=== PATIENT | female | born 1930 | race Caucasian/White ===

== ENCOUNTER → 2016-05-20 | Outpatient (CLI) | payer OTHER, BC ==
[~2016-05-20] MED LIST: ADVIN25050 INH; ALBU1AER9 INH; ALEN70TA2 PO; ASCO500T16 PO; ASPI-435 PO; ATOR-22 PO; ATOR-24 PO; CALC-20 PO; CETI10TA84 PO; CHOL20007 PO; CYAN100020 PO; CYAN500T13 PO; DEXT30TA7 PO; ESTCR PV; FLAX100025 PO; GABA-113 PO; GABA400C PO; GABA600T PO; GLIM2TAB2 PO; GLUCTAB7 PO; INSDGIPEN SC; INSU3INJ3 SC; KETO2CRE14; LOSA100T65 PO; LTRCR30 TOP; METF-383 PO; METR-162 PO; MULT-768 PO; MULTTAB58 PO; NRN600 PO; NVLGI/PEN SC; NVLGIPEN SC; OMEG10007 PO; OMEG1CAP81 PO; SPRIN/30 INH; THIA250T3 PO; TIOTCAP INH; VITA100C2 PO; VITA100C4 PO; VNTHFA/IN INH
--- NOTE | 2016-05-20 09:06 | DIAGNOSTIC IMAGING REPORT ---
CHEST 2 VIEWS ROUTINE CLINICAL HISTORY: Cough COMPARISON STUDY: 2013 FINDINGS: The heart remains normal in size. There is pulmonary emphysema. There is prominence of the central pulmonary arteries, a finding suggesting pulmonary arterial hypertension. There is no lobar consolidation. There is no failure. There are no significant pleural effusions. There are subsegmental atelectatic changes at the left lung base.[ IMPRESSION: 1. Emphysema with possible pulmonary arterial hypertension 2. Stable left lung volume loss, possibly postsurgical. Stable left basilar atelectasis/scarring. 3. No evidence of acute parenchymal consolidation Electronically signed by: Jed Suero M.D. 05/20/2016 9:04 AM
== END | disposition home or self-care (01) ==
LOC: C.RAD1850 08:36
PROVIDERS: ATTEND Internal Medicine
DX: R05 Cough (principal); J43.9 Emphysema, unspecified

== ENCOUNTER → 2016-08-27 | Outpatient (CLI) | payer OTHER, BC ==
[2016-08-27 13:56] LABS: URINE APPEARANCE TURBID (CLEAR); URINE BILIRUBIN NEG (NEG); URINE COLOR DK YELLOW; URINE EPITHELIAL CELL AUTO >30 /lpf (0-5); URINE NITRITE NEG (NEG); URINE SPECIFIC GRAVITY 1.009 (1.000-1.030); UROBILINOGEN NEG (NEG); ZZUR CULT IF INDIC CLEAN CATCH YES
[2016-08-27 14:11] LABS: MANUAL MICROSCOPIC REQUIRED? NO; REVIEW REQ? YES
[2016-08-27 14:14] LABS: ESTIMATED AVERAGE GLUCOSE 169 mg/dl; HA1C FLAG Normal (Normal)
[2016-08-27 14:50] LABS: BLOOD UREA NITROGEN 22 mg/dl (7-18); BUN/CREATININE RATIO 23.6 (10-20); CARBON DIOXIDE 29 mmol/L (21-32); CHLORIDE 103 mmol/L (98-107); CREATININE 0.94 mg/dl (0.60-1.20); GLUCOSE 125 mg/dl (70-99); MAGNESIUM 1.9 mg/dl (1.8-2.4); POTASSIUM 4.5 mmol/L (3.5-5.1); SODIUM 141 mmol/L (136-145)
[2016-08-27 14:51] LABS: PHOSPHORUS 3.2 mg/dl (2.5-4.9)
[2016-08-27 14:54] LABS: URINE PROTIEN/CREAT RATIO 0.7 (0-0.2); URINE TOTAL PROTEIN 19.6 mg/dl (0-11.9)
[2016-08-27 15:09] LABS: CALCIUM 10.9 mg/dl (8.5-10.1)
--- NOTE | 2016-09-03 16:00 | CODING QUERY MEDICAL NECESSITY ---
CQSUPPORTING DIAGNOSIS NEEDED A supporting diagnosis is required for the test/procedure performed on this patient in order for us to be reimbursed by the patient's insurance. Please provide a supporting diagnosis for the following test/procedure listed below next to the test name along with your signature. *If there is no additional diagnosis for this patient that would support the following test/procedure please document that below next to the test/procedure. Test(s)/Procedure(s) that require a supporting diagnosis: DOS 08/27/16 URINE CULTURE BACTERIA Provider Signature: Date: Thank you Kati Torres Health Information Management Once completed, please kindly fax back to [phone] For questions please call [phone]
== END | disposition home or self-care (01) ==
LOC: C.LAB1850 11:52
PROVIDERS: ATTEND Internal Medicine Nephrology
DX: N18.3 Chronic kidney disease, stage 3 (moderate) (principal); E11.49 Type 2 diabetes mellitus with other diabetic neurological complication; N39.0 Urinary tract infection, site not specified

== ENCOUNTER 2017-01-26 11:48 | Inpatient (IN) | payer OTHER, BC ==
[~2017-01-26] VITALS: Ht 172.7 cm; Wt 75.0 kg
[~2017-01-26 11:48] MED LIST changes: -ALEN70TA2 PO; -ATOR-22 PO; -CETI10TA84 PO; -CHOL20007 PO; -CYAN100020 PO; -DEXT30TA7 PO; -GABA-113 PO; -GABA600T PO; -INSDGIPEN SC; -INSU3INJ3 SC; -LTRCR30 TOP; -NRN600 PO; -NVLGI/PEN SC; -NVLGIPEN SC; -OMEG10007 PO; -SPRIN/30 INH; -VITA100C2 PO; -VNTHFA/IN INH
[2017-01-26] MEDS ORDERED: ALBUT/IPRATROP 3MG/0.5MG NEB 3 ML VIAL INH STA ×2 (12:19→12:52)
--- NOTE | 2017-01-26 12:46 | DIAGNOSTIC IMAGING REPORT ---
CHEST ONE VIEW PORTABLE CLINICAL HISTORY: Shortness of breath COMPARISON STUDY: No previous studies for comparison. FINDINGS: There is underlying pulmonary emphysema. There is left-sided volume loss. Linear left basilar opacities, likely represents scar/atelectatic change.[ There are no significant pleural effusions. There is no failure. IMPRESSION: Postoperative changes in left hemithorax. Left basilar scar/atelectasis. Emphysema. No evidence of acute parenchymal consolidation Electronically signed by: Jed Suero M.D. 01/26/2017 12:45 PM Dictated Date/Time: 01/26/2017 12:44 PM
[2017-01-26 12:48] LABS: BASO % 0.1 %; BASO ABS # 0.02 K/uL (0-0.2); COMPLETE YES; EOS % 0.1 %; HEMATOCRIT 36.8 % (37-47); IG% 0.4 %; LYMPH % 5.4 %; LYMPH ABS # 0.77 K/uL (1.2-3.4); MEAN CELL VOLUME 91.1 fL (80-100); MEAN CORPUSCULAR HEMOGLOBIN 29.2 pg (25-34); MEAN CORPUSCULAR HGB CONC 32.1 g/dl (32-36); MEAN PLATELET VOLUME 8.7 fL (7.4-10.4); MONO % 5.3 %; NEUT % 88.7 %; PLATELET COUNT 251 K/uL (130-400); RED BLOOD COUNT 4.04 M/uL (4.2-5.4); WHITE BLOOD COUNT 14.25 K/uL (4.8-10.8)
[2017-01-26] MEDS ORDERED: METHYLPREDNISOLONE 125 MG VIAL IV STA (12:52)
--- NOTE | 2017-01-26 12:54 | EMERGENCY ROOM VISIT NOTE ---
History Report prepared by Daniel: Rosario Alegre Under the Supervision of: Dr. Brigette Gabriel M.D. First contact with patient: 12:32 Chief Complaint: SHORTNESS OF BREATH Stated Complaint: BREATHING DIFFICULTY Nursing Triage Summary: Patient arrived via EMS c/o SOB today. States usually she sits down and can catch her breath, today she could not. Pt states she wears oxygen at home at night, 2L, "Dr Dimas told me he wants me to wear it during the day to, but I live alone". Pt states she does not wear the oxygen during the day. On arrival pt O2 Sats 97% on 2L NC. Patient c/o cough, productive, but she has it all the time and there is no change in cough or phlegm. Wheezes ins/exp left side. History of Present Illness The patient is an 86 year old female who presents to the Emergency Room with complaints of persistent shortness of breath that worsened this morning. The patient reports that she has been experiencing increased shortness of breath with exertion. She reports chest tightness and feeling fatigued. The patient states that she has been coughing up a lot of sputum. She states that she has a history of COPD. The patient states that she has never experienced these symptoms in the past. She states that she quit smoking in 1999. The patient states that she wears 2 liters of supplemental nasal cannula oxygen at home at night only. She denies any cardiac history. The reports a history of diabetes. Source of History: patient Onset: this morning Position: other (global) Quality: other (shortness of breath) Timing: other (persistent ) Modifying Factors (Worsening): exertion Associated Symptoms: + chest pain (tightness), + fatigue Review of Systems See HPI for pertinent positives & negatives. A total of 10 systems reviewed and were otherwise negative. Past Medical & Surgical Medical Problems: (1) COPD (chronic obstructive pulmonary disease) (2) DM (diabetes mellitus) (3) Lung cancer (4) Neuropathy Family History Cancer Heart disease Social History Smoking Status: Former Smoker Alcohol Use: none Marital Status: Housing Status: lives alone Occupation Status: retired Current/Historical Medications Scheduled Alendronate Sodium (Fosamax), 70 MG PO WK Aspirin (Aspirin 81), 81 MG PO DAILY Atorvastatin (Lipitor), 20 MG PO HS Calcium Carbonate-Vitamin D (Calcium 600 + D), 1 TAB PO DAILY Cetirizine (Zyrtec), 10 MG PO DAILY Cholecalciferol (Vitamin D3), 2,000 UNITS PO DAILY Clotrimazole (Lotrimin 1%), 1 APPLN TOP BID Cyanocobalamin (Vitamin B12 500MCG), 1,000 MCG PO DAILY Fish Oil ([place]-3), 1 CAP PO DAILY Fluticasone Prop/Salmeterol (Advair Diskus 250-50 Mcg/Dose), 1 PUFF INH BID Gabapentin (Neurontin), 300 MG PO QAM Gabapentin (Gabapentin), 300 MG PO UD Gabapentin (Neurontin), 600 MG PO QPM Insulin Aspart (Novolog Flexpen), 10 UNITS SC QAM Insulin Aspart (Novolog Flexpen), 30 UNITS SC DAILY Insulin Detemir (Levemir Flextouch), 17-20 UNITS SC HS Losartan Potassium (Cozaar), 100 MG PO DAILY Multiple Vitamin (Multivitamin), 1 TAB PO DAILY Multiple Vitamins W/ Minerals (Macular Vitamin Benefit), 2 TABS PO DAILY Thiamine Hcl (Vitamin B-1), 1 TAB PO DAILY Tiotropium Orange (Spiriva Handihaler), 1 CAP INH DAILY Vitamin E (Vitamin E 100 Iu), 100 INTER.UNIT PO DAILY Scheduled PRN Albuterol Hfa (Ventolin Hfa), 2 PUFFS INH Q4H PRN for SOB/Wheezing Dextromethorphan-Guaifenesin (Mucinex Dm), 1 TAB PO Q12 PRN for CONGESTION Allergies Coded Allergies: No Known Allergies (Unverified , 01/26/17) Physical Exam Vital Signs Date Time Temp Pulse Resp B/P (MAP) Pulse Ox O2 Delivery O2 Flow Rate FiO2 01/26/17 13:16 99 26 152/85 98 Mask 5.0 01/26/17 13:13 104 26 153/76 80 Room Air 01/26/17 12:35 100 27 153/78 96 Nasal Cannula 3.0 01/26/17 12:35 96 Nasal Cannula 2.0 01/26/17 12:31 102 25 96 Nasal Cannula 2.0 01/26/17 12:21 100 01/26/17 11:50 36.4 105 24 153/78 97 Nasal Cannula 2.0 01/26/17 11:50 97 Nasal Cannula 2.0 01/26/17 11:50 87 Room Air Physical Exam Vital signs reviewed. General: Well-appearing female, in no significant distress. HEENT: No scleral icterus, PERRLA, neck supple. Atraumatic. Hard of hearing Cardiovascular: Regular rate and rhythm, no extra sounds. Pulmonary: Coarse breath sounds with wheezing bilaterally, increased work of breathing. Abdomen: Soft, nontender, nondistended, positive bowel sounds. Musculoskeletal: Atraumatic, no peripheral edema. Neurologic: Patient awake alert and oriented x 3, full strength in all 4 extremities. Cranial nerves 2 through 12 grossly intact. Skin: Warm, dry, no rash Medical Decision & Procedures ER Provider Diagnostic Interpretation: Radiology results as stated below per my review and radiologist interpretation: CHEST ONE VIEW PORTABLE CLINICAL HISTORY: Shortness of breath COMPARISON STUDY: No previous studies for comparison. FINDINGS: There is underlying pulmonary emphysema. There is left-sided volume loss. Linear left basilar opacities, likely represents scar/atelectatic change.[ There are no significant pleural effusions. There is no failure. IMPRESSION: Postoperative changes in left hemithorax. Left basilar scar/atelectasis. Emphysema. No evidence of acute parenchymal consolidation Electronically signed by: Jed Suero M.D. 01/26/2017 12:45 PM Dictated Date/Time: 01/26/2017 12:44 PM Laboratory Results Test 01/26/17 12:35 01/26/17 13:29 Prothrombin Time 10.8 SECONDS (9.0-12.0) Prothromb Time International Ratio 1.0 (0.9-1.1) Activated Partial Thromboplast Time 23.6 SECONDS (21.0-31.0) Partial Thromboplastin Ratio 0.9 Total Bilirubin 0.3 mg/dl (0.2-1) Aspartate Amino Transf (AST/SGOT) 13 U/L (15-37) Alanine Aminotransferase (ALT/SGPT) 18 U/L (12-78) Alkaline Phosphatase 69 U/L (45-117) Pro-B-Type Natriuretic Peptide 193 pg/ml (0-1800) Total Protein 7.1 gm/dl (6.4-8.2) Albumin 3.5 gm/dl (3.4-5.0) Globulin 3.6 gm/dl (2.5-4.0) Albumin/Globulin Ratio 1.0 (0.9-2) Bedside Troponin I < 0.030 ng/ml (0-0.045) Laboratory results per my review. Medications Administered Medications (Trade) Dose Ordered Sig/Sarkis Route Start Time Stop Time Status Last Admin Dose Admin Albuterol/ Ipratropium (Duoneb) 3 ml NOW STAT INH 01/26/17 12:19 01/26/17 12:20 DC 01/26/17 13:01 3 ML Methylprednisolone Sodium Succinate (Solu-Medrol IV) 125 mg NOW STAT IV 01/26/17 12:52 01/26/17 12:54 DC 01/26/17 13:00 125 MG Insulin Human Regular 250 units/ Sodium Chloride 252.5 ml @ 0 mls/hr DAILY@1130 IV 01/26/17 11:30 01/28/17 01:47 DC 01/27/17 22:00 8.4 MLS/HR ECG Indication: SOB/dyspnea Rate (beats per minute): 102 Rhythm: sinus tachycardia Findings: no acute ischemic change, left axis deviation, no ectopy ED Course 1219: Ordered DuoNeb 3 ml INH. 1248: Past medical records reviewed. The patient was evaluated in room C6. A complete history and physical examination was performed. 1252: Ordered Solu-Medrol IV 125 mg IV. 1332: I discussed the patients case with Dr. [place] [facility] [place] He is going to evaluate the patient for further treatment. 1335: I reevaluated the patient and she is resting comfortably. I discussed the exam findings with her and I discussed the treatment plan. She verbalized complete understanding and agreement. She will be evaluated for further treatment. Medical Decision Differential diagnosis: Etiologies such as infections, reactive airway disease, pneumonia, pneumothorax , COPD, CHF, cardiac ischemia, pulmonary embolism, musculoskeletal, gastrointestinal, as well as others were entertained. This pt was evaluated and appeared to be in no distress. Pt was on n/c O2 and is noted to be hypoxic on RA. A duoneb tx was given, IV solumedral. CXR is neg for infiltrate or failure. EKG is non ischemic. Lab work reveals a leukocytosis. No atbx have been administered however, no evidence of infection otherwise. Pt case was d/w hospitalist service for admission and further management. Pt is aware of the plan and agrees. Medication Reconcilliation Current Medication List: was personally reviewed by me Blood Pressure Screening Patient's blood pressure: Elevated blood pressure Blood pressure disposition: Elevated BP felt to be situational (referred to hospitalist) Consults Time Called: 1329 Consulting Physician: JUANITA Azar Returned Call: [phone] I discussed the patients case with JUANITA Azar. He is going to evaluate the patient for further treatment. Impression Primary Impression: COPD exacerbation Additional Impression: Hypoxia Scribe Attestation The scribe's documentation has been prepared under my direction and personally reviewed by me in its entirety. I confirm that the note above accurately reflects all work, treatment, procedures, and medical decision making performed by me. Departure Information Dispostion Being Evaluated By Hospitalist Referrals RV. Balbuena MD (PCP) Problem Qualifiers
[2017-01-26 12:56] LABS: PARTIAL THROMBOPLASTIN RATIO 0.9; PROTHROMBIN TIME (PATIENT) 10.8 SECONDS (9.0-12.0)
[2017-01-26 13:06] LABS: CREATININE 0.92 mg/dl (0.60-1.20)
[2017-01-26 13:07] LABS: BUN/CREATININE RATIO 19.2 (10-20); CALCIUM 9.7 mg/dl (8.5-10.1); POTASSIUM 4.5 mmol/L (3.5-5.1)
[2017-01-26] MEDS ORDERED: NVLGIPEN SC (13:36)
[2017-01-26] MEDS ORDERED: LTRCR30 TOP (13:36)
[2017-01-26] MEDS ORDERED: DEXT30TA7 PO (13:36)
[2017-01-26] MEDS ORDERED: OMEG10007 PO (13:36)
[2017-01-26] MEDS ORDERED: INSU3INJ3 SC (13:36)
[2017-01-26] MEDS ORDERED: NVLGI/PEN SC (13:36)
[2017-01-26] MEDS ORDERED: VITA100C2 PO (13:36)
[2017-01-26] MEDS ORDERED: GABA600T PO ×2 (13:36)
[2017-01-26] MEDS ORDERED: ALEN70TA2 PO (13:36)
[2017-01-26] MEDS ORDERED: ATOR-22 PO (13:36)
[2017-01-26] MEDS ORDERED: NRN600 PO (13:36)
[2017-01-26] MEDS ORDERED: CHOL20007 PO (13:36)
[2017-01-26] MEDS ORDERED: CETI10TA84 PO (13:36)
[2017-01-26] MEDS ORDERED: SPRIN/30 INH (13:36)
[2017-01-26] MEDS ORDERED: VNTHFA/IN INH (13:37)
[2017-01-26] MEDS ORDERED: ZOLPIDEM TARTRATE 5 MG TAB PO PRN (14:15)
[2017-01-26] MEDS ORDERED: ACETAMINOPHEN 325 MG TAB PO PRN (14:15)
[2017-01-26] MEDS ORDERED: MAGNESIUM HYDROXIDE SUSP 30 ML UDC PO PRN (14:15)
[2017-01-26] MEDS ORDERED: ONDANSETRON INJ 2 MG/ML 2 ML VIAL IV PRN (14:15)
[2017-01-26] MEDS ORDERED: POLYETHYLENE (MIRALAX) 17 GM PACK PO PRN (14:15)
[2017-01-26] MEDS ORDERED: ALUMINUM/MAGNESIUM/SIMETH (MAALOX MAX) 30 ML UDC PO PRN (14:15)
[2017-01-26] MEDS ORDERED: PHARMACY GLYCEMIC MGMT CONSULT PRN (14:30)
--- NOTE | 2017-01-26 14:30 | History and Physical ---
History & Physical Date of Service Jan 26, 2017. History & Physical COPD EXAC, [id number]
[2017-01-26] MEDS ORDERED: ALBUT/IPRATROP 3MG/0.5MG NEB 3 ML VIAL INH PRN (14:45)
--- NOTE | 2017-01-26 15:01 | HISTORY & PHYSICAL EXAMINATION ---
DATE OF ADMISSION: 01/26/2017 This is a level 3 inpatient admission, 40 minutes. CHIEF COMPLAINT: Worsening shortness of breath and wheezing. HISTORY OF PRESENT ILLNESS: The patient is an 86-year-old white female with history of COPD, diabetic, lung cancer, neuropathy, dyslipidemia, coming into the hospital Emergency Room because of the above chief complaint. Per report, the patient lives alone. She usually needs oxygen at nighttime and usually able to catch up her breathing, but today was feeling more difficulty breathing. The patient was sent to the hospital Emergency Room. When she arrived to the Emergency Room, pulse ox was 97% on 2 liters. She complained about cough productively but she reported has been having this cough all the time. Has no changes recently. She was wheezing, inspiratory and expiratory. She also reported chest tight and feeling fatigued. She has history of COPD and remote smoking, quit in the year of 1999. In the Emergency Room, she was thought has COPD exacerbation, so Solu-Medrol was given. I was called to do admission. When I interviewed with the patient, she was having decreased hearing, but awake, alert and orientated, conversational, smiling. Denied fever and chills. Denied chest pain, palpitations. Denied lower extremity swellings. Denied nausea, vomiting, abdominal pain, diarrhea, or constipation. Denied dysuria, urgency and frequencies. Denied facial droop, slurry speeches or local weakness. PAST MEDICAL HISTORY: Like I mentioned in the above. FAMILY HISTORY: Include cancer, heart disease. SOCIAL HISTORY: Former smoker. Denied alcohol abuse disorder. The patient lives alone. She is . MEDICATIONS: Taking at home which include Fosamax 70 mg p.o. q. weekly, aspirin 81 mg p.o. daily, Lipitor 20 mg p.o. at bedtime, calcium 600 plus D 1 tab p.o. daily, Zyrtec 10 mg p.o. daily, vitamin D3 2000 units p.o. daily, Lotrimin 1% topical use b.i.d., vitamin B12 500 mcg p.o. daily, fish oil 1 tab p.o. daily, Advair 250/50 one puff b.i.d., gabapentin 300 mg p.o. q.a.m. and 600 mg p.o. q.p.m. Insulin aspart 10 units subQ q.a.m. and 30 units subQ daily, Levemir 17-20 units subQ at bedtime, Losartan 100 mg p.o. daily, multiple vitamin 1 tab p.o. daily, thiamine 1 tab p.o. daily, Spiriva 1 cap inhaled daily, vitamin E 100 units p.o. daily, albuterol inhale 2 puff q. 4 hours p.r.n. for shortness of breath and wheezing, Mucinex DM 1 tab p.o. q. 12 hours p.r.n. for congestion. ALLERGIES: No known drug allergy. REVIEW OF SYSTEMS: Please see HPI, otherwise 14-point organ system review were negative. PHYSICAL EXAMINATION: VITAL SIGNS: of physical Temperature is 36.4, pulse 105, respiratory rate 24, blood pressure 153/78, pulse ox was 97% on 2 liters. GENERAL: The patient is white female, pleasant, wheezing, wet cough, but awake, alert and orientated, pleasant, conversational, decreased hearing. HEAD: Normocephalic. EYES: Pupils equal, round responds to light. EARS: Ear was normal. NOSE: Normal. NECK: Supple. Thyroid no enlargement. Trachea midline. HEART: Regular rhythm. S1, S2. LUNGS: Significant decreased breathing sounds. There was some wheezing, inspiratory and expiratory wheezing and wet rales. ABDOMEN: Soft, nontender. Bowel sound was positive. EXTREMITIES: Bilateral CVA was nontender. No swelling. Homans sign was negative. NEUROLOGICAL EVALUATION: Cranial nerves II-XII was intact. There was no local deficits. SKIN: Has no rashes. LABORATORY STUDIES: WBC 14, hemoglobin 11, platelet 251. Neutrophil cells was 88%. Calcium 9.7, total bilirubin 0.3. Liver function was within normal limits. PT/INR was normal. IMAGING STUDIES: Chest x-ray studies, there was postop changes in the left hemithorax. Because she has history of lung cancer possible from the procedure there was also emphysema changes. No evidence of acute acute parenchymal consolidations. ASSESSMENT AND PLAN: An 86-year-old white female with the condition below. 1. Chronic obstructive pulmonary disease exacerbation. 2. Leukocytosis but chest x-ray has no evidence of pneumonia. 3. Decreased hearing. 4. History of lung cancer s/p surgery 5. Hypertension. 6. Dyslipidemia. 7. Diabetic. 8. Neuropathy. PLAN: The patient obviously has COPD exacerbation, will be full admission. Continue Solu-Medrol 80 mg q. 8 hours IV, DuoNeb q. 6 hours scheduled and q. 2 hours as needed. Because of mild leukocytosis, I sent blood culture and started Levaquin as well just for only bronchitis. The patient possibly has no pneumonia for now. However, if want to define more we may need to have 2 view chest x-ray for further evaluation and treatment. 2. History of hypertension, we will continue current home medications. 3. History of neuropathy, will continue Neurontin 4. Diabetic,will ordered HbA1c. Insulin sliding scale. Continue home dose of the Levemir. Consult pharmacy blood glucose control. 5. Deep venous thrombosis prophylaxis Lovenox and GI prophylaxis is Protonix. It will be important the patient has decreased hearing. I do not believe is able to discuss about code status, although she is awake, alert, and orientated. I heard the patient's son call in to this Emergency Room already. However, I am not able to localize the son's phone number to call him back. I was trying the list contact number , no answer. We need to continue communication with patient's son. She reported to me she has 4 sons, everyone is good to her. I WILL KEEP HER IN FULL CODE FOR NOW. JESSICA
--- NOTE | 2017-01-26 15:04 | Pharmacy Progress Note ---
Glycemic Control Intl Consult Date of Service Jan 26, 2017. Scope Glycemic Pharmacist consulted by Dr Garcia on 01/26/17 for glycemic control and to write orders per [facility] inpatient glycemic control protocol Objective Weight (Kilograms): 74.900 Accuchecks BSG (last 24hrs): Test 01/26/17 12:35 Random Glucose 263 mg/dl (70-99) Laboratory Data (last 24hrs) Test 01/26/17 12:35 Anion Gap 5.0 mmol/L BUN/Creatinine Ratio 19.2 Blood Urea Nitrogen 18 mg/dl Creatinine 0.92 mg/dl Potassium Level 4.5 mmol/L Sodium Level 135 mmol/L White Blood Count 14.25 K/uL Red Blood Count 4.04 M/uL Hemoglobin 11.8 g/dL Hematocrit 36.8 % Mean Corpuscular Volume 91.1 fL Mean Corpuscular Hemoglobin 29.2 pg Mean Corpuscular Hemoglobin Concent 32.1 g/dl Platelet Count 251 K/uL Mean Platelet Volume 8.7 fL Neutrophils (%) (Auto) 88.7 % Lymphocytes (%) (Auto) 5.4 % Monocytes (%) (Auto) 5.3 % Eosinophils (%) (Auto) 0.1 % Basophils (%) (Auto) 0.1 % Neutrophils # (Auto) 12.64 K/uL Lymphocytes # (Auto) 0.77 K/uL Monocytes # (Auto) 0.75 K/uL Eosinophils # (Auto) 0.01 K/uL Basophils # (Auto) 0.02 K/uL Recent Pertinent Medications Outpatient Anti-diabetic Regimen: * Levemir 26 units qPM plus Novolog 10 units with breakfast and 30 units with dinner * A1c = 7.5 % 08/27/16 Risk Factors for Insulin Resistance: * Steroids: Solu-Medrol 125 mg IV x 1 then 80 mg IV q8 hours * Infection: COPD exacerbation * Diet: type 2 diabetic diet Assessment & Plan ASSESSMENT: * ADA & AACE recommend a goal blood sugar range 140-180 mg/dl for the majority of critically ill & non-critically ill patients. However, more stringent targets may be selected in individual cases. Will utilize more stringent goal of 100-150 mg/dl based on patient age & comorbidities. Additionally, tighter glycemic control is warranted to facilitate infection healing. * Ms Francois is an 86 y/o with a PMH of COPD and lung CA. She is admitted with a COPD exacerbation. Ms Francois sees the paraeducator - her regimen provides reasonable coverage as an outpatient with only a few lows secondary to dietary choices. On admission, Ms Francois was given high dose steroids (Anjali-Medrol 125 mg IV in the ED and 80 mg IV q8 hours). * Out of concern for having controlled blood sugars, an insulin infusion (spoke with Dr Garcia who agreed to the therapy) with concurrent Levemir will be started. A fixed carbohydrate ratio will also be utilized. Both will originate from weight based stress of 3 dosing. PLAN FOR INPATIENT GLYCEMIC CONTROL: * Starting IV insulin infusion per moderate (moderate/severe) stress protocol * Goal Range 110 - 160 mg/dl * In the critical care setting, continuous IV insulin infusion has been shown to be the best method for achieving glycemic targets. * Basal insulin with Levemir 20 units SQ BID * Correctional Insulin with NOVOLOG per scale ACHS or Q6hrs while NPO * Goal Range: Low 110 mg/dL - High 160 mg/dL * Correction Factor: -- mg/dL/unit * Nutritional / Prandial insulin per carb ratio of 1 unit per 6 grams CHO consumed * Please note that the plan above was derived based on current level of insulin resistance and hospital stress. These recommendations are appropriate for inpatient admission only. Plan of care upon discharge will need to be reassessed to avoid potential outpatient hypo/hyperglycemia. Thank you.
[2017-01-26] MEDS ORDERED: INSULIN HUMAN REGULAR IV BOLUS 2 UNIT in SYRINGE 0 ML IV SCH (15:30)
[2017-01-26] MEDS ORDERED: INSULIN ASPART 100 UNITS/ML 3 ML PEN SC SCH (16:00)
[2017-01-26] MEDS: INSULIN REGULAR 250 UNITS in SODIUM CHLORIDE 0.9% 250ML 250 ML IV SCH ×3 (16:22→19:40)
[2017-01-26 16:42] LABS: URINE APPEARANCE CLEAR (CLEAR); URINE BILIRUBIN NEG (NEG); URINE COLOR YELLOW; URINE NITRITE NEG (NEG); URINE SPECIFIC GRAVITY 1.006 (1.000-1.030); UROBILINOGEN NEG (NEG)
[2017-01-26 16:49] LABS: MANUAL MICROSCOPIC REQUIRED? NO; REVIEW REQ? YES
[2017-01-26] MEDS: MUCINEX DM~ORDER AWAITING ACTION SCH ×2 (17:00→23:12)
[2017-01-26] MEDS ORDERED: LEVOFLOXACIN 750 MG TAB PO SCH (17:15)
[2017-01-26] MEDS ORDERED: PANTOprazole SOD 40 MG TAB PO ONE (17:15)
[2017-01-26 18:49] VITALS: BP 144/78; PULSE 92; TEMP 36.6; O2SAT 98; BMI 26.4
[2017-01-26] MEDS: INSULIN ASPART 100 UNITS/ML 3 ML PEN SC SCH ×2 (19:39→20:51)
[2017-01-26 20:00] VITALS: O2SAT 98
[2017-01-26] MEDS: ALBUT/IPRATROP 3MG/0.5MG NEB 3 ML VIAL INH SCH (20:04)
[2017-01-26 20:06] VITALS: PULSE 91; O2SAT 97
[2017-01-26] MEDS: METHYLPREDNISOLONE IV 80 MG in SYRINGE 0 ML IV SCH (20:46)
[2017-01-26] MEDS: CLOTRIMAZOLE 1% CR 15 GM TUBE EXT SCH (20:49)
[2017-01-26] MEDS: GABAPENTIN 600 MG TAB PO SCH (20:50)
[2017-01-26] MEDS: ATORVASTATIN 20 MG TAB PO SCH (20:50)
[2017-01-26] MEDS: ENOXAPARIN 40 MG/0.4 ML SYR SC SCH (20:51)
[2017-01-26] MEDS: INSULIN DETEMIR FLEXPEN/FLEX TOUCH 100 UNITS/ML 3ML SC SCH (20:53)
[2017-01-26 23:16] VITALS: BP 112/59; PULSE 81; TEMP 36.8; O2SAT 96
[2017-01-27] VITALS (11 sets, daily range): BP systolic 96–121; BP diastolic 54–71; PULSE 61–85; TEMP 36.4–36.9; O2SAT 95–98; Ht 172.7 cm; Wt 75.0 kg
[2017-01-27] MEDS: INSULIN REGULAR 250 UNITS in SODIUM CHLORIDE 0.9% 250ML 250 ML IV SCH ×8 (00:12→22:00)
[2017-01-27] MEDS ORDERED: PNEUMOCOCCAL POLYSACCHARIDES 25 MCG/0.5 ML VIAL/SYR IM. ONE (01:45)
[2017-01-27] MEDS ORDERED: PNEUMOCOCCAL ADMINISTRATION CHARGE ONE (01:45)
[2017-01-27] MEDS: METHYLPREDNISOLONE IV 80 MG in SYRINGE 0 ML IV SCH ×3 (04:01→23:42)
[2017-01-27 06:03] LABS: BASO % 0.1 %; BASO ABS # 0.01 K/uL (0-0.2); COMPLETE YES; HEMATOCRIT 35.4 % (37-47); IG% 0.4 %; LYMPH % 7.9 %; LYMPH ABS # 1.03 K/uL (1.2-3.4); MEAN CORPUSCULAR HEMOGLOBIN 28.5 pg (25-34); MEAN CORPUSCULAR HGB CONC 31.4 g/dl (32-36); MEAN PLATELET VOLUME 8.7 fL (7.4-10.4); NEUT % 89.6 %; PLATELET COUNT 256 K/uL (130-400); RED BLOOD COUNT 3.89 M/uL (4.2-5.4); WHITE BLOOD COUNT 12.98 K/uL (4.8-10.8)
[2017-01-27 06:39] LABS: BUN/CREATININE RATIO 22.4 (10-20); CALCIUM 9.8 mg/dl (8.5-10.1); CREATININE 0.79 mg/dl (0.60-1.20); POTASSIUM 4.2 mmol/L (3.5-5.1)
[2017-01-27 06:53] LABS: ESTIMATED AVERAGE GLUCOSE 166 mg/dl; HA1C FLAG Normal (Normal)
[2017-01-27] MEDS: MUCINEX DM~ORDER AWAITING ACTION SCH ×3 (07:02→23:24)
[2017-01-27] MEDS: ALBUT/IPRATROP 3MG/0.5MG NEB 3 ML VIAL INH SCH ×4 (08:00→20:00)
[2017-01-27] MEDS: CLOTRIMAZOLE 1% CR 15 GM TUBE EXT SCH ×2 (08:39→20:22)
[2017-01-27] MEDS: CHOLECALCIFEROL 1000 INTER.UNIT TAB PO SCH (08:41)
[2017-01-27] MEDS: CALCIUM 600MG + VIT D 400 IU TAB PO SCH (08:41)
[2017-01-27] MEDS: OMEGA-3 (PURIFIED FISH OIL) 1 GM CAP PO SCH (08:41)
[2017-01-27] MEDS: CYANOCOBALAMIN 500 MCG TAB (VIT B-12) PO SCH (08:41)
[2017-01-27] MEDS: ASPIRIN 81 MG ECTAB PO SCH (08:41)
[2017-01-27] MEDS: PANTOprazole SOD 40 MG TAB PO SCH (08:41)
[2017-01-27] MEDS: CEROVITE ADV FORMULA TAB PO SCH (08:41)
[2017-01-27] MEDS: LOSARTAN POTASSIUM 50 MG TAB PO SCH (08:42)
[2017-01-27] MEDS: THIAMINE HCL 100 MG TAB PO SCH (08:42)
[2017-01-27] MEDS: GABAPENTIN 300 MG CAP PO SCH (08:42)
[2017-01-27] MEDS: CETIRIZINE HCL 10 MG TAB PO SCH (08:44)
[2017-01-27] MEDS: INSULIN ASPART 100 UNITS/ML 3 ML PEN SC SCH ×4 (08:51→20:20)
[2017-01-27] MEDS: INSULIN DETEMIR FLEXPEN/FLEX TOUCH 100 UNITS/ML 3ML SC SCH ×2 (08:52→20:14)
[2017-01-27] MEDS ORDERED: INSULIN ASPART 100 UNITS/ML 3 ML PEN SC SCH ×2 (09:00)
[2017-01-27] MEDS ORDERED: MULTIVITAMIN TAB PO SCH (09:00)
[2017-01-27] MEDS: ATORVASTATIN 20 MG TAB PO SCH (20:10)
[2017-01-27] MEDS: GABAPENTIN 600 MG TAB PO SCH (20:12)
[2017-01-27] MEDS: ENOXAPARIN 40 MG/0.4 ML SYR SC SCH (20:16)
--- NOTE | 2017-01-27 21:17 | Progress Note ---
Subjective Date of Service: Jan 27, 2017. Subjective Pt evaluation today including: conversation w/ patient, physical exam, chart review, lab review, review of studies Patient is reporting significant improveemnt. She states that she is able to breath better, She feels uneasy ambulating however, as she states that she is going to fall. Patient denies orthostatic symptoms when she stands up. Problem List Medical Problems: (1) COPD exacerbation Status: Acute (2) Hypoxia Status: Acute Review of Systems Constitutional: No see HPI, No fever, No chills, No sweats, No weight loss, No weakness, No fatigue, No problem reported Respiratory: + shortness of breath, No cough, No sputum Cardiac: No chest pain, No orthopnea Abdomen: No pain, No nausea Musculoskeletal: No joint pain Female : No dysuria, No urinary frequency All Other Systems: Reviewed and Negative Medications Current Inpatient Medications Medications (Trade) Dose Ordered Sig/Sarkis Route Start Time Stop Time Status Last Admin Dose Admin Enoxaparin Sodium (Lovenox Inj) 40 mg Q24H SC 01/26/17 21:00 02/25/17 20:59 01/27/17 20:16 40 MG Acetaminophen (Tylenol Tab) 650 mg Q4H PRN PO 01/26/17 14:15 02/25/17 14:14 Al Hydrox/Mg Hydrox/Simethicone (Maalox Max Susp) 15 ml Q4H PRN PO 01/26/17 14:15 02/25/17 14:14 Magnesium Hydroxide (Milk Of Magnesia Susp) 30 ml Q12H PRN PO 01/26/17 14:15 02/25/17 14:14 Zolpidem Tartrate (Ambien Tab) 5 mg HSZ PRN PO 01/26/17 14:15 02/25/17 14:14 Ondansetron HCl (Zofran Inj) 4 mg Q6H PRN IV 01/26/17 14:15 02/25/17 14:14 Polyethylene (Miralax Powder Packet) 17 gm DAILY PRN PO 01/26/17 14:15 02/25/17 14:14 Levofloxacin (Levaquin Tab) 750 mg Q2D@1100 PO 01/26/17 17:15 02/02/17 17:14 01/26/17 18:38 750 MG Albuterol/ Ipratropium (Duoneb) 3 ml QIDR INH 01/26/17 16:00 02/25/17 15:59 01/27/17 20:00 3 ML Aspirin (Ecotrin Tab) 81 mg DAILY PO 01/27/17 09:00 02/26/17 08:59 01/27/17 08:41 81 MG Atorvastatin Calcium (Lipitor Tab) 20 mg HS PO 01/26/17 21:00 02/25/17 20:59 01/27/17 20:10 20 MG Cetirizine HCl (zyrTEC TAB) 10 mg DAILY PO 01/27/17 09:00 02/26/17 08:59 Clotrimazole (Lotrimin 1% Crm) 1 appln BID EXT 01/26/17 21:00 02/25/17 20:59 Cyanocobalamin (Vitamin B-12 Tab) 1,000 mcg DAILY PO 01/27/17 09:00 02/26/17 08:59 01/27/17 08:41 1,000 MCG Fish Oil ([place]-3 (Purified Fish Oil) Cap) 1 gm DAILY PO 01/27/17 09:00 02/26/17 08:59 01/27/17 08:41 1 GM Gabapentin (Neurontin Cap) 300 mg QAM PO 01/27/17 09:00 02/26/17 08:59 01/27/17 08:42 300 MG Gabapentin (Neurontin Tab) 600 mg QPM PO 01/26/17 21:00 02/25/17 20:59 01/27/17 20:12 600 MG Insulin Detemir (Levemir Flexpen/ FlexTouch) 20 units BID SC 01/26/17 21:00 02/25/17 20:59 Future hold 01/27/17 20:14 20 UNITS Losartan Potassium (coZAAR TAB) 100 mg DAILY PO 01/27/17 09:00 02/26/17 08:59 01/27/17 08:42 100 MG Multivitamins/ Minerals (Multivitamin W/ Minerals Tab) 2 tab DAILY PO 01/27/17 09:00 02/26/17 08:59 01/27/17 08:41 2 TAB Calcium/Vitamin D (Caltrate Plus Tab) 1 tab DAILY PO 01/27/17 09:00 02/26/17 08:59 01/27/17 08:41 1 TAB Cholecalciferol (Vitamin D Tab) 2,000 inter.unit DAILY PO 01/27/17 09:00 02/26/17 08:59 01/27/17 08:41 2,000 INTER.UNIT Miscellaneous Information (Order Awaiting Action) 1 ea QS N/A 01/26/17 17:00 02/25/17 16:59 Thiamine HCl (Vitamin B-1 Tab) 250 mg DAILY PO 01/27/17 09:00 02/26/17 08:59 01/27/17 08:42 250 MG Miscellaneous Information (Consult Glycemic Management Pharmacy) 1 ea UD PRN N/A 01/26/17 14:30 02/25/17 14:29 Pantoprazole Sodium (Protonix Tab) 40 mg QAM PO 01/27/17 09:00 02/26/17 08:59 01/27/17 08:41 40 MG Albuterol/ Ipratropium (Duoneb) 3 ml Q2H PRN INH 01/26/17 14:45 02/25/17 14:44 Insulin Human Regular 250 units/ Sodium Chloride 252.5 ml @ 0 mls/hr DAILY@1130 IV 01/26/17 11:30 02/25/17 11:29 01/27/17 20:00 8.4 MLS/HR Insulin Aspart (novoLOG ASPART) SLIDING SCALE [facility] 01/26/17 18:00 02/25/17 18:59 01/27/17 20:20 4 UNITS Methylprednisolone Sodium Succinate 80 mg/Syringe 1.28 ml @ 1.5 mls/min Q12H IV 01/28/17 00:00 02/25/17 19:59 Objective Vital Signs Date Time Temp Pulse Resp B/P (MAP) Pulse Ox O2 Delivery O2 Flow Rate FiO2 01/27/17 15:14 36.7 73 16 96/58 (71) 98 Nasal Cannula 2.0 01/27/17 12:10 Nasal Cannula 2.0 01/27/17 11:34 36.4 75 18 121/67 (85) 97 Nasal Cannula 2.0 01/27/17 11:33 62 16 97 Nasal Cannula 2.0 01/27/17 08:30 Nasal Cannula 2.0 01/27/17 06:59 36.6 70 18 110/71 (84) 97 Nasal Cannula 2.0 01/27/17 04:00 Nasal Cannula 2.0 01/27/17 03:29 36.9 73 20 104/60 (75) 95 Nasal Cannula 1.0 01/27/17 00:00 Nasal Cannula 2.0 01/26/17 23:16 36.8 81 20 112/59 (76) 96 Nasal Cannula 2.0 01/26/17 20:06 91 18 97 Nasal Cannula 2.0 01/26/17 20:00 98 Nasal Cannula 2.0 01/26/17 18:49 36.6 92 26 144/78 98 Nasal Cannula 2.0 Physical Exam General Appearance: WD/WN, no apparent distress Eyes: normal inspection Neck: supple, no adenopathy, thyroid normal Respiratory/Chest: chest non-tender, lungs clear, normal breath sounds Cardiovascular: regular rate, rhythm, no edema, no gallop, no JVD Abdomen: normal bowel sounds, non tender Extremities: normal range of motion, non-tender Skin: normal color Lymphatic: no adenopathy Laboratory Results Last 24 Hours Test 01/26/17 17:13 01/26/17 18:04 01/26/17 19:04 01/26/17 20:00 Bedside Glucose 204 mg/dl 220 mg/dl 255 mg/dl 237 mg/dl Test 01/26/17 21:06 01/26/17 22:09 01/26/17 23:09 01/27/17 00:07 Bedside Glucose 195 mg/dl 180 mg/dl 172 mg/dl 145 mg/dl Test 01/27/17 01:04 01/27/17 02:05 01/27/17 03:57 01/27/17 05:28 Bedside Glucose 145 mg/dl 156 mg/dl 132 mg/dl White Blood Count 12.98 K/uL Red Blood Count 3.89 M/uL Hemoglobin 11.1 g/dL Hematocrit 35.4 % Mean Corpuscular Volume 91.0 fL Mean Corpuscular Hemoglobin 28.5 pg Mean Corpuscular Hemoglobin Concent 31.4 g/dl Platelet Count 256 K/uL Mean Platelet Volume 8.7 fL Neutrophils (%) (Auto) 89.6 % Lymphocytes (%) (Auto) 7.9 % Monocytes (%) (Auto) 2.0 % Eosinophils (%) (Auto) 0.0 % Basophils (%) (Auto) 0.1 % Neutrophils # (Auto) 11.63 K/uL Lymphocytes # (Auto) 1.03 K/uL Monocytes # (Auto) 0.26 K/uL Eosinophils # (Auto) 0.00 K/uL Basophils # (Auto) 0.01 K/uL RDW Standard Deviation 47.8 fL RDW Coefficient of Variation 14.4 % Immature Granulocyte % (Auto) 0.4 % Immature Granulocyte # (Auto) 0.05 K/uL Sodium Level 140 mmol/L Potassium Level 4.2 mmol/L Chloride Level 107 mmol/L Carbon Dioxide Level 29 mmol/L Anion Gap 4.0 mmol/L Blood Urea Nitrogen 18 mg/dl Creatinine 0.79 mg/dl Est Creatinine Clear Calc Drug Dose 54.5 ml/min Estimated GFR () 78.0 Estimated GFR (Non- 67.3 BUN/Creatinine Ratio 22.4 Random Glucose 130 mg/dl Estimated Average Glucose 166 mg/dl Hemoglobin A1c 7.4 % Calcium Level 9.8 mg/dl Magnesium Level 2.0 mg/dl Test 01/27/17 06:09 01/27/17 08:01 01/27/17 10:12 01/27/17 11:23 Bedside Glucose 123 mg/dl 125 mg/dl 195 mg/dl 165 mg/dl Test 01/27/17 12:18 01/27/17 13:31 01/27/17 14:33 01/27/17 15:35 Bedside Glucose 134 mg/dl 216 mg/dl 185 mg/dl 188 mg/dl Assessment and Plan An 86-year-old white female with the condition below. 1. Chronic obstructive pulmonary disease exacerbation. 2. Leukocytosis but chest x-ray has no evidence of pneumonia. 3. Decreased hearing. 4. History of lung cancer s/p surgery 5. Hypertension. 6. Dyslipidemia. 7. Diabetic. 8. Neuropathy. In regards to her COPD exacerbation, will decrease Solu-Medrol from 80 mg q. 8 hours IV to Q12H. WILL CONTINUE WITH DuoNeb q. 6 hours scheduled and q. 2 hours as needed. Because of mild leukocytosis, IMPROVING. kennedy monitor. 2. History of hypertension, at goal. will continue home meds 3. History of neuropathy, will continue Neurontin 4. Diabetic,A1C us ok in the 7's for a patient who is 86. Will continue Insulin sliding scale. Continue home dose of the Levemir. Informed Glycemic control that we will decrease solumedrol to q12h. 5. Deep venous thrombosis prophylaxis Lovenox and GI prophylaxis is Protonix. 6. Due to ambulatory dysfunction, will refer to physical therapy. Continued [facility] stay due to: ambulation difficulties, other (Requiring IV corticosteroid) Discharge planning: home
[2017-01-28] VITALS (13 sets, daily range): BP systolic 91–112; BP diastolic 50–63; PULSE 62–77; TEMP 35.8–36.8; O2SAT 92–99
--- NOTE | 2017-01-28 06:57 | DIAGNOSTIC IMAGING REPORT ---
CHEST 2 VIEWS ROUTINE CLINICAL HISTORY: 86 years-old Female presenting with emphysema. TECHNIQUE: PA and lateral views of the chest were obtained. COMPARISON: 01/26/2017. FINDINGS: Atherosclerosis of aortic arch. Partial obscuration of the left heart border secondary to left basilar opacity. Persistent bandlike opacity at the left lung base and obscuration of the left hemidiaphragm. Right lung and pleural space clear, although the right lung is hyperinflated. Heterogeneous radiolucency in the right upper lobe suggests emphysema. No pneumothorax or pleural effusion. Osseous structures normal. Upper abdomen normal. IMPRESSION: 1. Hyperinflated right lung and changes consistent with emphysema. 2. Persistent opacity at the left lung base could represent atelectasis or scarring. Electronically signed by: Shahbaz Castro M.D. 01/28/2017 6:56 AM Dictated Date/Time: 01/28/2017 6:52 AM
[2017-01-28 07:10] LABS: COMPLETE YES; HEMATOCRIT 34.6 % (37-47); IG% 0.3 %; LYMPH % 7.2 %; LYMPH ABS # 0.95 K/uL (1.2-3.4); MEAN CELL VOLUME 92.3 fL (80-100); MEAN CORPUSCULAR HEMOGLOBIN 28.8 pg (25-34); MEAN CORPUSCULAR HGB CONC 31.2 g/dl (32-36); MEAN PLATELET VOLUME 8.8 fL (7.4-10.4); MONO % 2.7 %; NEUT % 89.8 %; PLATELET COUNT 287 K/uL (130-400); RED BLOOD COUNT 3.75 M/uL (4.2-5.4); WHITE BLOOD COUNT 13.17 K/uL (4.8-10.8)
[2017-01-28 07:44] LABS: BUN/CREATININE RATIO 28.6 (10-20); CALCIUM 9.3 mg/dl (8.5-10.1); CREATININE 0.93 mg/dl (0.60-1.20); POTASSIUM 4.5 mmol/L (3.5-5.1)
[2017-01-28] MEDS: MUCINEX DM~ORDER AWAITING ACTION SCH ×3 (07:58→23:49)
[2017-01-28] MEDS: ALBUT/IPRATROP 3MG/0.5MG NEB 3 ML VIAL INH SCH ×4 (08:10→21:01)
[2017-01-28] MEDS: CALCIUM 600MG + VIT D 400 IU TAB PO SCH (08:30)
[2017-01-28] MEDS: CHOLECALCIFEROL 1000 INTER.UNIT TAB PO SCH (08:30)
[2017-01-28] MEDS: CETIRIZINE HCL 10 MG TAB PO SCH (08:30)
[2017-01-28] MEDS: OMEGA-3 (PURIFIED FISH OIL) 1 GM CAP PO SCH (08:30)
[2017-01-28] MEDS: CYANOCOBALAMIN 500 MCG TAB (VIT B-12) PO SCH (08:31)
[2017-01-28] MEDS: CEROVITE ADV FORMULA TAB PO SCH (08:31)
[2017-01-28] MEDS: PANTOprazole SOD 40 MG TAB PO SCH (08:31)
[2017-01-28] MEDS: THIAMINE HCL 100 MG TAB PO SCH (08:31)
[2017-01-28] MEDS: ASPIRIN 81 MG ECTAB PO SCH (08:31)
[2017-01-28] MEDS: LOSARTAN POTASSIUM 50 MG TAB PO SCH (08:31)
[2017-01-28] MEDS: GABAPENTIN 300 MG CAP PO SCH (08:31)
[2017-01-28] MEDS: CLOTRIMAZOLE 1% CR 15 GM TUBE EXT SCH ×2 (08:37→21:00)
[2017-01-28] MEDS: INSULIN ASPART 100 UNITS/ML 3 ML PEN SC SCH ×4 (08:44→21:53)
[2017-01-28] MEDS: INSULIN DETEMIR FLEXPEN/FLEX TOUCH 100 UNITS/ML 3ML SC SCH ×2 (08:44→21:49)
--- NOTE | 2017-01-28 10:09 | Progress Note ---
Subjective Date of Service: Jan 28, 2017. Subjective Pt evaluation today including: conversation w/ patient, physical exam, chart review, lab review Patient reports feeling better. Patient denies any SOB, nausea, vomiting. Patient states that she has had difficulty swallowing some pills. Problem List Medical Problems: (1) COPD exacerbation Status: Acute (2) Hypoxia Status: Acute Review of Systems All Other Systems: Reviewed and Negative Medications Current Inpatient Medications Medications (Trade) Dose Ordered Sig/Sarkis Route Start Time Stop Time Status Last Admin Dose Admin Enoxaparin Sodium (Lovenox Inj) 40 mg Q24H SC 01/26/17 21:00 02/25/17 20:59 01/27/17 20:16 40 MG Acetaminophen (Tylenol Tab) 650 mg Q4H PRN PO 01/26/17 14:15 02/25/17 14:14 Al Hydrox/Mg Hydrox/Simethicone (Maalox Max Susp) 15 ml Q4H PRN PO 01/26/17 14:15 02/25/17 14:14 Magnesium Hydroxide (Milk Of Magnesia Susp) 30 ml Q12H PRN PO 01/26/17 14:15 02/25/17 14:14 Zolpidem Tartrate (Ambien Tab) 5 mg HSZ PRN PO 01/26/17 14:15 02/25/17 14:14 Ondansetron HCl (Zofran Inj) 4 mg Q6H PRN IV 01/26/17 14:15 02/25/17 14:14 Polyethylene (Miralax Powder Packet) 17 gm DAILY PRN PO 01/26/17 14:15 02/25/17 14:14 Levofloxacin (Levaquin Tab) 750 mg Q2D@1100 PO 01/26/17 17:15 02/02/17 17:14 01/26/17 18:38 750 MG Albuterol/ Ipratropium (Duoneb) 3 ml QIDR INH 01/26/17 16:00 02/25/17 15:59 01/28/17 08:10 3 ML Aspirin (Ecotrin Tab) 81 mg DAILY PO 01/27/17 09:00 02/26/17 08:59 01/28/17 08:31 81 MG Atorvastatin Calcium (Lipitor Tab) 20 mg HS PO 01/26/17 21:00 02/25/17 20:59 01/27/17 20:10 20 MG Cetirizine HCl (zyrTEC TAB) 10 mg DAILY PO 01/27/17 09:00 02/26/17 08:59 01/28/17 08:30 10 MG Clotrimazole (Lotrimin 1% Crm) 1 appln BID EXT 01/26/17 21:00 02/25/17 20:59 Cyanocobalamin (Vitamin B-12 Tab) 1,000 mcg DAILY PO 01/27/17 09:00 02/26/17 08:59 01/28/17 08:31 1,000 MCG Fish Oil ([place]-3 (Purified Fish Oil) Cap) 1 gm DAILY PO 01/27/17 09:00 02/26/17 08:59 01/28/17 08:30 1 GM Gabapentin (Neurontin Cap) 300 mg QAM PO 01/27/17 09:00 02/26/17 08:59 01/28/17 08:31 300 MG Gabapentin (Neurontin Tab) 600 mg QPM PO 01/26/17 21:00 02/25/17 20:59 01/27/17 20:12 600 MG Insulin Detemir (Levemir Flexpen/ FlexTouch) 20 units BID SC 01/26/17 21:00 02/25/17 20:59 Future hold 01/28/17 08:44 20 UNITS Losartan Potassium (coZAAR TAB) 100 mg DAILY PO 01/27/17 09:00 02/26/17 08:59 01/28/17 08:31 100 MG Multivitamins/ Minerals (Multivitamin W/ Minerals Tab) 2 tab DAILY PO 01/27/17 09:00 02/26/17 08:59 01/28/17 08:31 2 TAB Calcium/Vitamin D (Caltrate Plus Tab) 1 tab DAILY PO 01/27/17 09:00 02/26/17 08:59 01/28/17 08:30 1 TAB Cholecalciferol (Vitamin D Tab) 2,000 inter.unit DAILY PO 01/27/17 09:00 02/26/17 08:59 01/28/17 08:30 2,000 INTER.UNIT Miscellaneous Information (Order Awaiting Action) 1 ea QS N/A 01/26/17 17:00 02/25/17 16:59 Thiamine HCl (Vitamin B-1 Tab) 250 mg DAILY PO 01/27/17 09:00 02/26/17 08:59 01/28/17 08:31 250 MG Miscellaneous Information (Consult Glycemic Management Pharmacy) 1 ea UD PRN N/A 01/26/17 14:30 02/25/17 14:29 Pantoprazole Sodium (Protonix Tab) 40 mg QAM PO 01/27/17 09:00 02/26/17 08:59 01/28/17 08:31 40 MG Albuterol/ Ipratropium (Duoneb) 3 ml Q2H PRN INH 01/26/17 14:45 02/25/17 14:44 Methylprednisolone Sodium Succinate 80 mg/Syringe 1.28 ml @ 1.5 mls/min Q12H IV 01/28/17 00:00 02/25/17 19:59 01/27/17 23:42 1.5 MLS/MIN Insulin Aspart (novoLOG ASPART) SLIDING SCALE ACHS SC 01/28/17 08:15 02/27/17 08:14 01/28/17 08:44 13 UNITS Objective Vital Signs Date Time Temp Pulse Resp B/P (MAP) Pulse Ox O2 Delivery O2 Flow Rate FiO2 01/28/17 08:20 Nasal Cannula 2.0 01/28/17 08:10 73 16 96 Nasal Cannula 2.0 01/28/17 07:35 35.8 62 16 100/61 (74) 99 Nasal Cannula 3.0 01/28/17 04:48 36.6 66 16 103/58 (73) 96 3.0 01/28/17 04:00 Nasal Cannula 2.0 01/28/17 00:05 36.6 75 18 97/50 (66) 97 2.0 01/28/17 00:00 Nasal Cannula 2.0 01/27/17 22:00 112/58 (76) 01/27/17 20:00 98 Nasal Cannula 2.0 01/27/17 20:00 73 16 98 Nasal Cannula 2.0 01/27/17 19:36 36.4 61 16 96/54 (68) 95 Nasal Cannula 2.0 01/27/17 16:58 98 Nasal Cannula 2.0 01/27/17 16:04 74 16 98 Nasal Cannula 2.0 01/27/17 15:14 36.7 73 16 96/58 (71) 98 Nasal Cannula 2.0 01/27/17 14:15 85 98 01/27/17 12:10 Nasal Cannula 2.0 01/27/17 11:34 36.4 75 18 121/67 (85) 97 Nasal Cannula 2.0 01/27/17 11:33 62 16 97 Nasal Cannula 2.0 Physical Exam General Appearance: WD/WN, no apparent distress Eyes: normal inspection ENT: normal ENT inspection Neck: supple, no adenopathy Respiratory/Chest: chest non-tender, normal breath sounds, no respiratory distress, + decreased breath sounds (left lower base, no rhonchi) Cardiovascular: regular rate, rhythm, no edema, no gallop Abdomen: normal bowel sounds, non tender, soft Extremities: normal inspection Lymphatic: no adenopathy Laboratory Results Last 24 Hours Test 01/27/17 10:12 01/27/17 11:23 01/27/17 12:18 01/27/17 13:31 Bedside Glucose 195 mg/dl 165 mg/dl 134 mg/dl 216 mg/dl Test 01/27/17 14:33 01/27/17 15:35 01/27/17 16:33 01/27/17 17:46 Bedside Glucose 185 mg/dl 188 mg/dl 166 mg/dl 190 mg/dl Test 01/27/17 19:01 01/27/17 20:01 01/27/17 21:02 01/27/17 21:58 Bedside Glucose 265 mg/dl 258 mg/dl 224 mg/dl 210 mg/dl Test 01/27/17 23:09 01/28/17 01:10 01/28/17 01:57 01/28/17 03:10 Bedside Glucose 202 mg/dl 101 mg/dl 81 mg/dl 117 mg/dl Test 01/28/17 06:42 01/28/17 07:56 White Blood Count 13.17 K/uL Red Blood Count 3.75 M/uL Hemoglobin 10.8 g/dL Hematocrit 34.6 % Mean Corpuscular Volume 92.3 fL Mean Corpuscular Hemoglobin 28.8 pg Mean Corpuscular Hemoglobin Concent 31.2 g/dl Platelet Count 287 K/uL Mean Platelet Volume 8.8 fL Neutrophils (%) (Auto) 89.8 % Lymphocytes (%) (Auto) 7.2 % Monocytes (%) (Auto) 2.7 % Eosinophils (%) (Auto) 0.0 % Basophils (%) (Auto) 0.0 % Neutrophils # (Auto) 11.83 K/uL Lymphocytes # (Auto) 0.95 K/uL Monocytes # (Auto) 0.35 K/uL Eosinophils # (Auto) 0.00 K/uL Basophils # (Auto) 0.00 K/uL RDW Standard Deviation 48.5 fL RDW Coefficient of Variation 14.3 % Immature Granulocyte % (Auto) 0.3 % Immature Granulocyte # (Auto) 0.04 K/uL Sodium Level 138 mmol/L Potassium Level 4.5 mmol/L Chloride Level 105 mmol/L Carbon Dioxide Level 27 mmol/L Anion Gap 6.0 mmol/L Blood Urea Nitrogen 27 mg/dl Creatinine 0.93 mg/dl Est Creatinine Clear Calc Drug Dose 43.0 ml/min Estimated GFR () 64.0 Estimated GFR (Non- 55.3 BUN/Creatinine Ratio 28.6 Random Glucose 201 mg/dl Calcium Level 9.3 mg/dl Bedside Glucose 192 mg/dl Assessment and Plan An 86-year-old white female with the condition below. 1. Chronic obstructive pulmonary disease exacerbation. 2. Leukocytosis but chest x-ray has no evidence of pneumonia. 3. Decreased hearing. 4. History of lung cancer s/p surgery 5. Hypertension. 6. Dyslipidemia. 7. Diabetic. 8. Neuropathy. In regards to her COPD exacerbation, Patient is improving. C-X-RAY shows lower lobe base infiltrate. Will initiate incentive spirometry. Will change to oral steroids tomorrow. Patient received levoflozacin today. will discharge on zpack. 2. History of hypertension, at goal. will continue home meds 3. History of neuropathy, will continue Neurontin 4. Diabetic,A1C us ok in the 7's for a patient who is 86. Will continue Insulin sliding scale. Continue home dose of the Levemir. Informed Glycemic control that we will decrease solumedrol to q12h. 5. Deep venous thrombosis prophylaxis Lovenox and GI prophylaxis is Protonix. 6. Due to ambulatory dysfunction, will refer to physical therapy. Continued [facility] stay due to: ambulation difficulties, other (Requiring IV corticosteroid) Discharge planning: home
--- NOTE | 2017-01-28 10:39 | Pharmacy Progress Note ---
Glycemic Control Progress Note Date of Service Jan 28, 2017. Scope Glycemic Pharmacist consulted for glycemic control to write orders per [facility] inpatient glycemic control protocol. Objective Accuchecks BSG (last 24hrs): Test 01/27/17 11:23 01/27/17 12:18 01/27/17 13:31 01/27/17 14:33 Bedside Glucose 165 mg/dl (70-90) 134 mg/dl (70-90) 216 mg/dl (70-90) 185 mg/dl (70-90) Test 01/27/17 15:35 01/27/17 16:33 01/27/17 17:46 01/27/17 19:01 Bedside Glucose 188 mg/dl (70-90) 166 mg/dl (70-90) 190 mg/dl (70-90) 265 mg/dl (70-90) Test 01/27/17 20:01 01/27/17 21:02 01/27/17 21:58 01/27/17 23:09 Bedside Glucose 258 mg/dl (70-90) 224 mg/dl (70-90) 210 mg/dl (70-90) 202 mg/dl (70-90) Test 01/28/17 01:10 01/28/17 01:57 01/28/17 03:10 01/28/17 06:42 Bedside Glucose 101 mg/dl (70-90) 81 mg/dl (70-90) 117 mg/dl (70-90) Random Glucose 201 mg/dl (70-99) Test 01/28/17 07:56 Bedside Glucose 192 mg/dl (70-90) HbA1c: Test 01/27/17 05:28 Hemoglobin A1c 7.4 % (4.5-5.6) H Recent Pertinent Medications The patient is currently receiving: * Basal insulin: Levemir 20 units every 12 hours concurrently with IV Insulin infusion * IV Insulin infusion - moderate stress protocol Goal Range: Low 140 mg/dL - High 180 mg/dL * Prandial insulin: Fixed carb ratio: Per carb ratio of 1 unit per 6 grams CHO consumed Outpatient Anti-Diabetic Meds Basal Insulin and Bolus Insulin Assessment & Plan ASSESSMENT: * See progress note from 01/26 for more background info, in short: * Pt receiving IV insulin infusion and Levemir SQ regimen for hyperglycemia secondary to baseline DM (outpatient regimen on hold), and IV Steroids * Patient's IV insulin was running at 6-8units/hr last evening, and then was stopped for low BSGs by Dr Elizalde * BSG this AM is 192mg/dL * Changes needed to insulin regimen: * AM Fasting BSG = 192 mg/dl. This is slightly above goal range for patient based on inpatient targets and co-morbidities. Will continue current basal at this time, as this is likely due to insulin drip coming off, pt may need increase in Levemir dose, but I am hesitant to do so since IV steroids are titrating down and likely to come off quickly. * Begin CF and CR PLAN FOR INPATIENT GLYCEMIC CONTROL: * Discontinued IV insulin infusion last night around midnight. * Basal insulin * Levemir 20 units SQ BID * Consider increasing if BSGs trend up today * Bolus insulin * NovoLog per scale ACHS or Q6hrs while NPO and overnight at 0000 and 0400 for steroid induced hyperglycemia * Goal Range: Low 110 mg/dL - High 140 mg/dL * Correction Factor: 18 mg/dL/unit * Nutritional / Prandial insulin per carb ratio of 1 unit per 6 grams CHO consumed RECOMMENDATIONS FOR DISCHARGE: * No changes needed, A1c of 7.4% acceptable for 86 year old. * Please note that the plan above was derived based on current level of insulin resistance and hospital stress. These recommendations are appropriate for inpatient admission only. Plan of care upon discharge will need to be reassessed to avoid potential outpatient hypo/hyperglycemia. Thank you.
[2017-01-28] MEDS: METHYLPREDNISOLONE IV 80 MG in SYRINGE 0 ML IV SCH (12:16)
[2017-01-28] MEDS: ATORVASTATIN 20 MG TAB PO SCH (21:41)
[2017-01-28] MEDS: GABAPENTIN 600 MG TAB PO SCH (21:41)
[2017-01-28] MEDS: ENOXAPARIN 40 MG/0.4 ML SYR SC SCH (21:55)
[2017-01-29] VITALS (12 sets, daily range): BP systolic 96–132; BP diastolic 53–71; PULSE 61–78; TEMP 35.9–36.9; O2SAT 90–99
[2017-01-29] MEDS: INSULIN ASPART 100 UNITS/ML 3 ML PEN SC SCH ×6 (00:01→21:05)
[2017-01-29] MEDS: ALBUT/IPRATROP 3MG/0.5MG NEB 3 ML VIAL INH SCH ×5 (07:46→23:29)
[2017-01-29] MEDS: MUCINEX DM~ORDER AWAITING ACTION SCH ×3 (08:00→22:59)
[2017-01-29] MEDS: CALCIUM 600MG + VIT D 400 IU TAB PO SCH (08:08)
[2017-01-29] MEDS: CETIRIZINE HCL 10 MG TAB PO SCH (08:08)
[2017-01-29] MEDS: ASPIRIN 81 MG ECTAB PO SCH (08:08)
[2017-01-29] MEDS: CEROVITE ADV FORMULA TAB PO SCH (08:08)
[2017-01-29] MEDS: THIAMINE HCL 100 MG TAB PO SCH (08:08)
[2017-01-29] MEDS: CHOLECALCIFEROL 1000 INTER.UNIT TAB PO SCH (08:08)
[2017-01-29] MEDS: LOSARTAN POTASSIUM 50 MG TAB PO SCH (08:09)
[2017-01-29] MEDS: INSULIN DETEMIR FLEXPEN/FLEX TOUCH 100 UNITS/ML 3ML SC SCH ×2 (08:11→21:05)
[2017-01-29] MEDS: OMEGA-3 (PURIFIED FISH OIL) 1 GM CAP PO SCH (08:12)
[2017-01-29] MEDS: GABAPENTIN 300 MG CAP PO SCH (08:12)
[2017-01-29] MEDS: CYANOCOBALAMIN 500 MCG TAB (VIT B-12) PO SCH (08:12)
[2017-01-29] MEDS: CLOTRIMAZOLE 1% CR 15 GM TUBE EXT SCH ×2 (08:57→20:57)
[2017-01-29] MEDS ORDERED: FLUTICASONE/SALMETEROL 250/50 (ADVAIR) 14 PUFF/1 INHALER INH ONE (12:30)
[2017-01-29] MEDS ORDERED: TIOTROPIUM BROMIDE 5 PUFF/90 MCG INH INH ONE (12:30)
[2017-01-29] MEDS: FLUTICASONE/SALMETEROL 250/50 (ADVAIR) 14 PUFF/1 INHALER INH SCH (21:02)
[2017-01-29] MEDS: ENOXAPARIN 40 MG/0.4 ML SYR SC SCH (21:03)
[2017-01-29] MEDS: GABAPENTIN 600 MG TAB PO SCH (21:04)
[2017-01-29] MEDS: ATORVASTATIN 20 MG TAB PO SCH (21:04)
--- NOTE | 2017-01-29 21:48 | Progress Note ---
Subjective Date of Service: Jan 29, 2017. Subjective Pt evaluation today including: conversation w/ patient, physical exam, chart review, lab review 86 yo female reports feeling moderately better. She continues to have some SOB, but it is much improved from yesterday, Px denies fever, chills, N/V. Problem List Medical Problems: (1) COPD exacerbation Status: Acute (2) Hypoxia Status: Acute Review of Systems Constitutional: + see HPI, No fever, No chills Eyes: No worsening of vision ENT: + hearing loss Cardiac: No chest pain, No orthopnea Abdomen: No pain, No nausea Female : No dysuria, No urinary frequency Neurologic: + memory loss Psychiatric: No depression symptoms, No anhedonism All Other Systems: Reviewed and Negative Medications Medications (Trade) Dose Ordered Sig/Sarkis Route Start Time Stop Time Status Last Admin Dose Admin Insulin Aspart (novoLOG ASPART) SLIDING SCALE 0000,0400 SC 01/29/17 00:00 01/29/17 12:45 DC 01/29/17 00:01 4 UNITS Prednisone (PredniSONE TAB) 60 mg DAILY PO 01/29/17 09:00 02/28/17 08:59 01/29/17 08:08 60 MG Salmeterol Xinafoate/ Fluticasone (Advair Diskus 250/50 Inh) 1 puff BID INH 01/29/17 21:00 02/28/17 20:59 01/29/17 21:02 1 PUFF Salmeterol Xinafoate/ Fluticasone (Advair Diskus 250/50 Inh) 1 puff 1230 ONCE INH 01/29/17 12:30 01/29/17 12:31 DC 01/29/17 13:54 1 PUFF Tiotropium [place] (Spiriva Handihaler Inhaler) 1 puff 1230 ONCE INH 01/29/17 12:30 01/29/17 12:31 DC 01/29/17 13:54 1 PUFF Objective Vital Signs Date Time Temp Pulse Resp B/P (MAP) Pulse Ox O2 Delivery O2 Flow Rate FiO2 01/29/17 20:00 90 Room Air 01/29/17 19:55 72 18 90 Room Air 01/29/17 19:27 36.7 78 18 113/61 (78) 93 Nasal Cannula 2.0 01/29/17 16:10 Nasal Cannula 2.0 01/29/17 15:34 36.9 71 18 102/53 (69) 92 Nasal Cannula 2.0 01/29/17 15:13 72 18 96 Nasal Cannula 2.0 01/29/17 12:15 Nasal Cannula 2.0 01/29/17 11:36 36.5 78 16 132/67 (88) 92 Room Air 01/29/17 11:15 71 18 95 Nasal Cannula 2.0 01/29/17 08:05 Nasal Cannula 2.0 01/29/17 07:46 66 16 99 Nasal Cannula 2.0 01/29/17 07:28 35.9 61 16 131/71 (91) 96 Nasal Cannula 2.0 01/29/17 04:00 Nasal Cannula 2.0 01/29/17 03:58 36.6 65 18 110/66 (81) 97 Nasal Cannula 2.0 01/29/17 00:00 Nasal Cannula 2.0 01/28/17 23:16 36.4 68 18 91/51 (64) 96 Nasal Cannula 2.0 Physical Exam General Appearance: WD/WN, no apparent distress Eyes: normal inspection Neck: supple, no adenopathy Respiratory/Chest: chest non-tender, lungs clear, normal breath sounds, no respiratory distress Cardiovascular: regular rate, rhythm, no edema, no gallop Abdomen: normal bowel sounds, non tender, soft Extremities: normal range of motion Laboratory Results Last 24 Hours Test 01/28/17 23:54 01/29/17 04:54 01/29/17 07:19 01/29/17 11:53 Bedside Glucose 200 mg/dl 134 mg/dl 91 mg/dl 157 mg/dl Test 01/29/17 16:35 01/29/17 20:15 Bedside Glucose 214 mg/dl 236 mg/dl Assessment and Plan An 86-year-old white female with the condition below. 1. Chronic obstructive pulmonary disease exacerbation. 2. Leukocytosis but chest x-ray has no evidence of pneumonia. 3. Decreased hearing. 4. History of lung cancer s/p surgery 5. Hypertension. 6. Dyslipidemia. 7. Diabetic. 8. Neuropathy. In regards to her COPD exacerbation, Patient is improving. C-X-RAY shows lower lobe base infiltrate. Will CONTINUE incentive spirometry. Changed to oral steroids today. Patient received levofloxacin yesterday. will discharge on zpack. Restarted home IH meds today. Awaiting placement to rehab. 2. History of hypertension, at goal. will continue home meds 3. History of neuropathy, will continue Neurontin 4. Diabetic,A1C us ok in the 7's for a patient who is 86. Will continue Insulin sliding scale. Continue home dose of the Levemir. Informed Glycemic control that we will decrease solumedrol to q12h. 5. Deep venous thrombosis prophylaxis Lovenox and GI prophylaxis is Protonix. 6. Due to ambulatory dysfunction, will refer to physical therapy. Continued [facility] stay due to: ambulation difficulties, other (Requiring IV corticosteroid) Discharge planning: rehab hospital
[2017-01-30] VITALS (9 sets, daily range): BP systolic 102–147; BP diastolic 58–71; PULSE 58–86; TEMP 36.5–37.1; O2SAT 90–98
[2017-01-30] MEDS: ALBUT/IPRATROP 3MG/0.5MG NEB 3 ML VIAL INH SCH ×4 (07:11→19:26)
[2017-01-30] MEDS: MUCINEX DM~ORDER AWAITING ACTION SCH ×2 (07:23→15:55)
[2017-01-30] MEDS: CLOTRIMAZOLE 1% CR 15 GM TUBE EXT SCH ×2 (07:24→20:54)
[2017-01-30] MEDS: CETIRIZINE HCL 10 MG TAB PO SCH (07:28)
[2017-01-30] MEDS: CHOLECALCIFEROL 1000 INTER.UNIT TAB PO SCH (07:28)
[2017-01-30] MEDS: CYANOCOBALAMIN 500 MCG TAB (VIT B-12) PO SCH (07:29)
[2017-01-30] MEDS: CEROVITE ADV FORMULA TAB PO SCH (07:29)
[2017-01-30] MEDS: GABAPENTIN 300 MG CAP PO SCH (07:29)
[2017-01-30] MEDS: THIAMINE HCL 100 MG TAB PO SCH (07:29)
[2017-01-30] MEDS: ASPIRIN 81 MG ECTAB PO SCH (07:30)
[2017-01-30] MEDS: LOSARTAN POTASSIUM 50 MG TAB PO SCH (07:30)
[2017-01-30] MEDS: TIOTROPIUM BROMIDE 5 PUFF/90 MCG INH INH SCH (07:30)
[2017-01-30] MEDS: CALCIUM 600MG + VIT D 400 IU TAB PO SCH (07:30)
[2017-01-30] MEDS: OMEGA-3 (PURIFIED FISH OIL) 1 GM CAP PO SCH (07:30)
[2017-01-30] MEDS: FLUTICASONE/SALMETEROL 250/50 (ADVAIR) 14 PUFF/1 INHALER INH SCH ×2 (07:31→20:54)
[2017-01-30] MEDS: INSULIN ASPART 100 UNITS/ML 3 ML PEN SC SCH ×4 (08:23→20:58)
[2017-01-30] MEDS: INSULIN DETEMIR FLEXPEN/FLEX TOUCH 100 UNITS/ML 3ML SC SCH ×2 (08:24→20:59)
--- NOTE | 2017-01-30 09:22 | Progress Note ---
Subjective Date of Service: Jan 30, 2017. Subjective Patient reports no significant improvement today. Patient states that her SOB has not improved. Patient though states that she has not been using her incentive spirometer. PX DENIES NAUSEA, VOMITING Problem List Medical Problems: (1) COPD exacerbation Status: Acute (2) Hypoxia Status: Acute Review of Systems Constitutional: No fever, No chills Eyes: No worsening of vision, No eye pain Cardiac: No chest pain, No orthopnea Abdomen: No pain, No nausea Heme: No abnormal bleeding/bruising All Other Systems: Reviewed and Negative Medications Current Inpatient Medications Medications (Trade) Dose Ordered Sig/Sarkis Route Start Time Stop Time Status Last Admin Dose Admin Enoxaparin Sodium (Lovenox Inj) 40 mg Q24H SC 01/26/17 21:00 02/25/17 20:59 01/30/17 20:55 40 MG Acetaminophen (Tylenol Tab) 650 mg Q4H PRN PO 01/26/17 14:15 02/25/17 14:14 Al Hydrox/Mg Hydrox/Simethicone (Maalox Max Susp) 15 ml Q4H PRN PO 01/26/17 14:15 02/25/17 14:14 Magnesium Hydroxide (Milk Of Magnesia Susp) 30 ml Q12H PRN PO 01/26/17 14:15 02/25/17 14:14 Zolpidem Tartrate (Ambien Tab) 5 mg HSZ PRN PO 01/26/17 14:15 02/25/17 14:14 Ondansetron HCl (Zofran Inj) 4 mg Q6H PRN IV 01/26/17 14:15 02/25/17 14:14 Polyethylene (Miralax Powder Packet) 17 gm DAILY PRN PO 01/26/17 14:15 02/25/17 14:14 01/28/17 21:41 17 GM Albuterol/ Ipratropium (Duoneb) 3 ml QIDR INH 01/26/17 16:00 02/25/17 15:59 01/30/17 19:26 3 ML Aspirin (Ecotrin Tab) 81 mg DAILY PO 01/27/17 09:00 02/26/17 08:59 01/30/17 07:30 81 MG Atorvastatin Calcium (Lipitor Tab) 20 mg HS PO 01/26/17 21:00 02/25/17 20:59 01/30/17 20:55 20 MG Cetirizine HCl (zyrTEC TAB) 10 mg DAILY PO 01/27/17 09:00 02/26/17 08:59 01/30/17 07:28 10 MG Clotrimazole (Lotrimin 1% Crm) 1 appln BID EXT 01/26/17 21:00 02/25/17 20:59 Cyanocobalamin (Vitamin B-12 Tab) 1,000 mcg DAILY PO 01/27/17 09:00 02/26/17 08:59 01/30/17 07:29 1,000 MCG Fish Oil ([place]-3 (Purified Fish Oil) Cap) 1 gm DAILY PO 01/27/17 09:00 02/26/17 08:59 01/30/17 07:30 1 GM Gabapentin (Neurontin Cap) 300 mg QAM PO 01/27/17 09:00 02/26/17 08:59 01/30/17 07:29 300 MG Gabapentin (Neurontin Tab) 600 mg QPM PO 01/26/17 21:00 02/25/17 20:59 01/30/17 20:55 600 MG Losartan Potassium (coZAAR TAB) 100 mg DAILY PO 01/27/17 09:00 02/26/17 08:59 01/30/17 07:30 100 MG Multivitamins/ Minerals (Multivitamin W/ Minerals Tab) 2 tab DAILY PO 01/27/17 09:00 02/26/17 08:59 01/30/17 07:29 2 TAB Calcium/Vitamin D (Caltrate Plus Tab) 1 tab DAILY PO 01/27/17 09:00 02/26/17 08:59 01/30/17 07:30 1 TAB Cholecalciferol (Vitamin D Tab) 2,000 inter.unit DAILY PO 01/27/17 09:00 02/26/17 08:59 01/30/17 07:28 2,000 INTER.UNIT Miscellaneous Information (Order Awaiting Action) 1 ea QS N/A 01/26/17 17:00 02/25/17 16:59 Thiamine HCl (Vitamin B-1 Tab) 250 mg DAILY PO 01/27/17 09:00 02/26/17 08:59 01/30/17 07:29 250 MG Miscellaneous Information (Consult Glycemic Management Pharmacy) 1 ea UD PRN N/A 01/26/17 14:30 02/25/17 14:29 Albuterol/ Ipratropium (Duoneb) 3 ml Q2H PRN INH 01/26/17 14:45 02/25/17 14:44 Insulin Aspart (novoLOG ASPART) SLIDING SCALE ACHS SC 01/28/17 08:15 02/27/17 08:14 01/30/17 20:58 5 UNITS Insulin Detemir (Levemir Flexpen/ FlexTouch) 24 units BID SC 01/28/17 21:00 02/27/17 20:59 01/30/17 20:59 24 UNITS Prednisone (PredniSONE TAB) 60 mg DAILY PO 01/29/17 09:00 02/28/17 08:59 01/30/17 07:29 60 MG Salmeterol Xinafoate/ Fluticasone (Advair Diskus 250/50 Inh) 1 puff BID INH 01/29/17 21:00 02/28/17 20:59 01/30/17 20:54 1 PUFF Tiotropium [place] (Spiriva Handihaler Inhaler) 1 puff DAILY INH 01/30/17 09:00 03/01/17 08:59 01/30/17 07:30 1 PUFF Objective Vital Signs Date Time Temp Pulse Resp B/P (MAP) Pulse Ox O2 Delivery O2 Flow Rate FiO2 01/30/17 08:00 Nasal Cannula 2.0 01/30/17 07:34 37.1 61 16 105/64 (78) 97 Room Air 01/30/17 07:13 61 18 98 Nasal Cannula 2.0 01/30/17 04:00 36.9 58 20 115/67 (83) 98 Nasal Cannula 2.0 01/30/17 04:00 Nasal Cannula 2.0 01/29/17 23:29 78 18 95 Nasal Cannula 2.0 01/29/17 23:25 Nasal Cannula 2.0 01/29/17 23:11 36.7 77 18 96/55 (69) 90 Nasal Cannula 2.0 01/29/17 20:00 90 Room Air 01/29/17 19:55 72 18 90 Room Air 01/29/17 19:27 36.7 78 18 113/61 (78) 93 Nasal Cannula 2.0 01/29/17 16:10 Nasal Cannula 2.0 01/29/17 15:34 36.9 71 18 102/53 (69) 92 Nasal Cannula 2.0 01/29/17 15:13 72 18 96 Nasal Cannula 2.0 01/29/17 12:15 Nasal Cannula 2.0 01/29/17 11:36 36.5 78 16 132/67 (88) 92 Room Air 01/29/17 11:15 71 18 95 Nasal Cannula 2.0 Physical Exam General Appearance: WD/WN, no apparent distress Neck: supple, no adenopathy Respiratory/Chest: chest non-tender, + wheezing Cardiovascular: regular rate, rhythm, no edema, no gallop Abdomen: normal bowel sounds, non tender, soft Extremities: normal range of motion, non-tender, no pedal edema Laboratory Results Last 24 Hours Test 01/29/17 11:53 01/29/17 16:35 01/29/17 20:15 01/30/17 07:35 Bedside Glucose 157 mg/dl 214 mg/dl 236 mg/dl 95 mg/dl Assessment and Plan An 86-year-old white female with the condition below. 1. Chronic obstructive pulmonary disease exacerbation. 2. Leukocytosis but chest x-ray has no evidence of pneumonia. 3. Decreased hearing. 4. History of lung cancer s/p surgery 5. Hypertension. 6. Dyslipidemia. 7. Diabetic. 8. Neuropathy. In regards to her COPD exacerbation, Patient is mildly improving. C-X-RAY shows lower lobe base infiltrate. will repeat toMORROW Will CONTINUE incentive spirometry. Incentive spirotmetry not at bedside Changed to oral steroids yesterday. Patient received levofloxacin yesterday. give z pack today. Restarted home IH meds today. Awaiting placement to rehab. 2. History of hypertension, at goal. will continue home meds 3. History of neuropathy, will continue Neurontin 4. Diabetic,A1C us ok in the 7's for a patient who is 86. Will continue Insulin sliding scale. Continue home dose of the Levemir. Informed Glycemic control that we will decrease solumedrol to q12h. 5. Deep venous thrombosis prophylaxis Lovenox and GI prophylaxis is Protonix. 6. Due to ambulatory dysfunction, will refer to physical therapy. Continued [facility] stay due to: ambulation difficulties, other (Requiring IV corticosteroid) Discharge planning: rehab hospital
[2017-01-30] MEDS ORDERED: AZITHROMYCIN 250 MG TAB PO ONE (10:45)
[2017-01-30] MEDS: GABAPENTIN 600 MG TAB PO SCH (20:55)
[2017-01-30] MEDS: ENOXAPARIN 40 MG/0.4 ML SYR SC SCH (20:55)
[2017-01-30] MEDS: ATORVASTATIN 20 MG TAB PO SCH (20:55)
[2017-01-31] VITALS: BP 92/52; PULSE 67; TEMP 36.4; O2SAT 98
[2017-01-31 04:00] VITALS: BP 101/63; PULSE 58; TEMP 36.4; O2SAT 99
[2017-01-31 05:57] LABS: BASO % 0.1 %; BASO ABS # 0.01 K/uL (0-0.2); COMPLETE YES; EOS % 1.2 %; HEMATOCRIT 35.8 % (37-47); IG% 1.2 %; LYMPH % 29.9 %; LYMPH ABS # 2.58 K/uL (1.2-3.4); MEAN CELL VOLUME 92.3 fL (80-100); MEAN CORPUSCULAR HEMOGLOBIN 28.4 pg (25-34); MEAN CORPUSCULAR HGB CONC 30.7 g/dl (32-36); MEAN PLATELET VOLUME 8.6 fL (7.4-10.4); MONO % 8.9 %; NEUT % 58.7 %; PLATELET COUNT 261 K/uL (130-400); RED BLOOD COUNT 3.88 M/uL (4.2-5.4); WHITE BLOOD COUNT 8.62 K/uL (4.8-10.8)
[2017-01-31 06:28] LABS: BUN/CREATININE RATIO 28.7 (10-20); CALCIUM 9.7 mg/dl (8.5-10.1); CREATININE 0.9 mg/dl (0.60-1.20)
[2017-01-31 07:35] VITALS: PULSE 60; O2SAT 98
[2017-01-31] MEDS: ALBUT/IPRATROP 3MG/0.5MG NEB 3 ML VIAL INH SCH ×2 (07:35→11:27)
[2017-01-31] MEDS: MUCINEX DM~ORDER AWAITING ACTION SCH ×2 (07:46)
[2017-01-31] MEDS: CLOTRIMAZOLE 1% CR 15 GM TUBE EXT SCH (07:46)
[2017-01-31] MEDS: CETIRIZINE HCL 10 MG TAB PO SCH (07:54)
[2017-01-31] MEDS: CHOLECALCIFEROL 1000 INTER.UNIT TAB PO SCH (07:54)
[2017-01-31] MEDS: CYANOCOBALAMIN 500 MCG TAB (VIT B-12) PO SCH (07:54)
[2017-01-31] MEDS: THIAMINE HCL 100 MG TAB PO SCH (07:55)
[2017-01-31] MEDS: CALCIUM 600MG + VIT D 400 IU TAB PO SCH (07:55)
[2017-01-31] MEDS: LOSARTAN POTASSIUM 50 MG TAB PO SCH (07:55)
[2017-01-31] MEDS: GABAPENTIN 300 MG CAP PO SCH (07:55)
[2017-01-31] MEDS: CEROVITE ADV FORMULA TAB PO SCH (07:55)
[2017-01-31] MEDS: ASPIRIN 81 MG ECTAB PO SCH (07:55)
[2017-01-31] MEDS: OMEGA-3 (PURIFIED FISH OIL) 1 GM CAP PO SCH (07:56)
[2017-01-31] MEDS: FLUTICASONE/SALMETEROL 250/50 (ADVAIR) 14 PUFF/1 INHALER INH SCH (07:56)
[2017-01-31] MEDS: TIOTROPIUM BROMIDE 5 PUFF/90 MCG INH INH SCH (07:56)
[2017-01-31] MEDS: INSULIN ASPART 100 UNITS/ML 3 ML PEN SC SCH (07:59)
[2017-01-31] MEDS: INSULIN DETEMIR FLEXPEN/FLEX TOUCH 100 UNITS/ML 3ML SC SCH (07:59)
--- NOTE | 2017-01-31 10:37 | Discharge Instructions ---
Discharge Instructions Date of Service Jan 31, 2017. Admission Reason for Admission: Copd Exacerbation Discharge Discharge Diagnosis / Problem: COPD exacerbation Discharge Goals Goal(s): Improve function, Increase independence, Improve nutritional status Activity Recommendations Activity Limitations: resume your previous activity . Instructions / Follow-Up Instructions / Follow-Up F/U with PCP within one week of discharge from rehab facility Current Hospital Diet Patient's current hospital diet: Diabetes Type 2 Diet Discharge Diet Recommended Diet: Diabetes Type 2 Diet Pending Studies Studies pending at discharge: no Laboratory Results Hemoglobin A1c Test 01/27/17 05:28 Range/Units Estimated Average Glucose 166 mg/dl Hemoglobin A1c 7.4 H 4.5-5.6 % Medical Emergencies . Who to Call and When: Medical Emergencies: If at any time you feel your situation is an emergency, please call 911 immediately. . Non-Emergent Contact Non-Emergency issues call your: Primary Care Provider Call Non-Emergent contact if: temperature is above 101 . . "Provider Documentation" section prepared by Marco Paez. . VTE Core Measure Inpt VTE Proph given/why not?: Enoxaparin (Lovenox)SQ, SCD's
[2017-01-31] MEDS ORDERED: AZITHROMYCIN 250 MG TAB PO ONE (11:00)
[2017-01-31 11:23] VITALS: BP 101/63; PULSE 60; TEMP 36.4; O2SAT 98
[2017-01-31 11:27] VITALS: PULSE 74; O2SAT 90
[2017-02-01] MEDS ORDERED: AZITHROMYCIN 250 MG TAB PO SCH (09:00)
[2017-02-01] MEDS ORDERED: AZITHROMYCIN 250 MG TAB PO ONE ×2 (09:00)
--- NOTE | 2017-02-24 10:23 | Discharge Instructions ---
Discharge Instructions Date of Service Feb 24, 2017. Admission Reason for Admission: Copd Exacerbation Activity Recommendations . Current Hospital Diet Patient's current hospital diet: Diabetes Type 2 Diet Laboratory Results Hemoglobin A1c Test 01/27/17 05:28 Range/Units Estimated Average Glucose 166 mg/dl Hemoglobin A1c 7.4 H 4.5-5.6 % Medical Emergencies . Who to Call and When: Medical Emergencies: If at any time you feel your situation is an emergency, please call 911 immediately. . Non-Emergent Contact . . "Provider Documentation" section prepared by Marco Paez. . VTE Core Measure Inpt VTE Proph given/why not?: Enoxaparin (Lovenox)SQ, SCD's
--- NOTE | 2017-02-24 10:29 | Discharge Summary ---
Discharge Summary Date of Service 2016 Discharge Summary Admission Date: Jan 26, 2017 at 14:14 Discharge Date: Jan 31, 2017 [facility] Principal Diagnosis: COPD exacerbation Problems/Secondary Diagnoses: diabetes, dyslipidemia Medication Reconciliation Continued Medications: Albuterol Hfa (Ventolin Hfa) 200 Puffs/34922 Mcg Aers 2 PUFFS INH Q4H PRN for SOB/Wheezing, #1 INHALER Alendronate Sodium (Fosamax) 70 Mg Tab 70 MG PO WK, TAB MONDAYS Aspirin (Aspirin 81) 81 Mg Tab 81 MG PO DAILY Atorvastatin (Lipitor) 20 Mg Tab 20 MG PO HS, TAB Calcium Carbonate-Vitamin D (Calcium 600 + D) 1 Tab Tab 1 TAB PO DAILY Cetirizine (Zyrtec) 10 Mg Tab 10 MG PO DAILY, TAB Cholecalciferol (Vitamin D3) 2,000 Unit Tab 2000 UNITS PO DAILY for 90 Days, TAB 3 Refills Clotrimazole (Lotrimin 1%) 90 Appln/30 Gm Cr 1 APPLN TOP BID RED PART OF SCALY FEET Cyanocobalamin (Vitamin B12 500MCG) 500 Mcg Tab 1000 MCG PO DAILY, TAB Dextromethorphan-Guaifenesin (Mucinex Dm) 1 Tab Tab 1 TAB PO Q12 PRN for CONGESTION for 14 Days, #28 TAB Fish Oil ([place]-3) 1 Ea Cap 1 CAP PO DAILY, CAP Fluticasone Prop/Salmeterol (Advair Diskus 250-50 Mcg/Dose) 14 Puff/1 Inhaler Aerp 1 PUFF INH BID Gabapentin (Neurontin) 600 Mg Tab 300 MG PO QAM, TAB Gabapentin (Gabapentin) 600 Mg Tab 300 MG PO UD AFTERNOON Gabapentin (Neurontin) 600 Mg Tab 600 MG PO QPM, TAB Insulin Aspart (Novolog Flexpen) 100 Units/Ml Inj 10 UNITS SC QAM Insulin Aspart (Novolog Flexpen) 100 Units/Ml Inj 30 UNITS SC DAILY WITH SUPPER Insulin Detemir (Levemir Flextouch) 100 Unit/Ml Inj 17-20 UNITS SC HS Losartan Potassium (Cozaar) 100 Mg Tab 100 MG PO DAILY, TAB Multiple Vitamin (Multivitamin) 1 Tab Tab 1 TAB PO DAILY, TAB Multiple Vitamins W/ Minerals (Macular Vitamin Benefit) 1 Tab Tab 2 TABS PO DAILY Thiamine Hcl (Vitamin B-1) 250 Mg Tab 1 TAB PO DAILY Tiotropium [place] (Spiriva Handihaler) 30 Puff/540 Mcg Aerp 1 CAP INH DAILY, INHALER Vitamin E (Vitamin E 100 Iu) 100 Unit Cap 100 INTER.UNIT PO DAILY, CAP Discharge Exam Review of Systems: Constitutional: No fever, No chills Respiratory: No cough, No sputum, No wheezing Cardiovascular: No chest pain, No orthopnea Abdomen: No pain, No nausea, No vomiting Musculoskeletal: No joint pain Neurologic: No memory loss, No paralysis Psychiatric: No depression symptoms, No anhedonism Physical Exam: General Appearance: WD/WN, no apparent distress Neck: supple, no adenopathy Respiratory/Chest: chest non-tender, lungs clear, normal breath sounds Cardiovascular: regular rate, rhythm, no edema, no gallop Abdomen / GI: normal bowel sounds, non tender, soft Neurologic/Psychiatric: clin tech II-XII nml as tested, alert Skin: normal color, warm/dry Lymphatic: no adenopathy Hospital Course CHIEF COMPLAINT: Worsening shortness of breath and wheezing. HISTORY OF PRESENT ILLNESS: The patient is an 86-year-old white female with history of COPD, diabetic, lung cancer, neuropathy, dyslipidemia, coming into the hospital Emergency Room because of the above chief complaint. Per report, the patient lives alone. She usually needs oxygen at nighttime and usually able to catch up her breathing, but today was feeling more difficulty breathing. The patient was sent to the hospital Emergency Room. When she arrived to the Emergency Room, pulse ox was 97% on 2 liters. She complained about cough productively but she reported has been having this cough all the time. Has no changes recently. She was wheezing, inspiratory and expiratory. She also reported chest tight and feeling fatigued. She has history of COPD and remote smoking, quit in the year of 1999. In the Emergency Room, she was thought has COPD exacerbation, so Solu-Medrol was given. I was called to do admission. When I interviewed with the patient, she was having decreased hearing, but awake, alert and orientated, conversational, smiling. Denied fever and chills. Denied chest pain, palpitations. Denied lower extremity swellings. Denied nausea, vomiting, abdominal pain, diarrhea, or constipation. Denied dysuria, urgency and frequencies. Denied facial droop, slurry speeches or local weakness. PAST MEDICAL HISTORY: Like I mentioned in the above. FAMILY HISTORY: Include cancer, heart disease. SOCIAL HISTORY: Former smoker. Denied alcohol abuse disorder. The patient lives alone. She is . MEDICATIONS: Taking at home which include Fosamax 70 mg p.o. q. weekly, aspirin 81 mg p.o. daily, Lipitor 20 mg p.o. at bedtime, calcium 600 plus D 1 tab p.o. daily, Zyrtec 10 mg p.o. daily, vitamin D3 2000 units p.o. daily, Lotrimin 1% topical use b.i.d., vitamin B12 500 mcg p.o. daily, fish oil 1 tab p.o. daily, Advair 250/50 one puff b.i.d., gabapentin 300 mg p.o. q.a.m. and 600 mg p.o. q.p.m. Insulin aspart 10 units subQ q.a.m. and 30 units subQ daily, Levemir 17-20 units subQ at bedtime, Losartan 100 mg p.o. daily, multiple vitamin 1 tab p.o. daily, thiamine 1 tab p.o. daily, Spiriva 1 cap inhaled daily, vitamin E 100 units p.o. daily, albuterol inhale 2 puff q. 4 hours p.r.n. for shortness of breath and wheezing, Mucinex DM 1 tab p.o. q. 12 hours p.r.n. for congestion. ALLERGIES: No known drug allergy. REVIEW OF SYSTEMS: Please see HPI, otherwise 14-point organ system review were negative. PHYSICAL EXAMINATION: VITAL SIGNS: of physical Temperature is 36.4, pulse 105, respiratory rate 24, blood pressure 153/78, pulse ox was 97% on 2 liters. GENERAL: The patient is white female, pleasant, wheezing, wet cough, but awake, alert and orientated, pleasant, conversational, decreased hearing. HEAD: Normocephalic. EYES: Pupils equal, round responds to light. EARS: Ear was normal. NOSE: Normal. NECK: Supple. Thyroid no enlargement. Trachea midline. HEART: Regular rhythm. S1, S2. LUNGS: Significant decreased breathing sounds. There was some wheezing, inspiratory and expiratory wheezing and wet rales. ABDOMEN: Soft, nontender. Bowel sound was positive. EXTREMITIES: Bilateral CVA was nontender. No swelling. Homans sign was negative. NEUROLOGICAL EVALUATION: Cranial nerves II-XII was intact. There was no local deficits. SKIN: Has no rashes. LABORATORY STUDIES: WBC 14, hemoglobin 11, platelet 251. Neutrophil cells was 88%. Calcium 9.7, total bilirubin 0.3. Liver function was within normal limits. PT/INR was normal. IMAGING STUDIES: Chest x-ray studies, there was postop changes in the left hemithorax. Because she has history of lung cancer possible from the procedure there was also emphysema changes. No evidence of acute acute parenchymal consolidations. ASSESSMENT AND PLAN: An 86-year-old white female with the condition below. 1. Chronic obstructive pulmonary disease exacerbation. 2. Leukocytosis but chest x-ray has no evidence of pneumonia. 3. Decreased hearing. 4. History of lung cancer s/p surgery 5. Hypertension. 6. Dyslipidemia. 7. Diabetic. 8. Neuropathy. PLAN: The patient obviously has COPD exacerbation, will be full admission. Continue Solu-Medrol 80 mg q. 8 hours IV, DuoNeb q. 6 hours scheduled and q. 2 hours as needed. Because of mild leukocytosis, I sent blood culture and started Levaquin as well just for only bronchitis. The patient possibly has no pneumonia for now. However, if want to define more we may need to have 2 view chest x-ray for further evaluation and treatment. 2. History of hypertension, we will continue current home medications. 3. History of neuropathy, will continue Neurontin 4. Diabetic,will ordered HbA1c. Insulin sliding scale. Continue home dose of the Levemir. Consult pharmacy blood glucose control. 5. Deep venous thrombosis prophylaxis Lovenox and GI prophylaxis is Protonix. It will be important the patient has decreased hearing. I do not believe is able to discuss about code status, although she is awake, alert, and orientated. I heard the patient's son call in to this Emergency Room already. However, I am not able to localize the son's phone number to call him back. I was trying the list contact number , no answer. We need to continue communication with patient's son. She reported to me she has 4 sons, everyone is good to her. I WILL KEEP HER IN FULL CODE FOR NOW. Dictated: 01/26/17 1430 Transcribed: 01/26/17 [id number] <Electronically signed by Kole Garcia MD, PhD> Signed: 01/26/17 [id number] ES Kole Garcia MD, PhD Hospital course An 86-year-old white female with the condition below. 1. Chronic obstructive pulmonary disease exacerbation. 2. Leukocytosis but chest x-ray has no evidence of pneumonia. 3. Decreased hearing. 4. History of lung cancer s/p surgery 5. Hypertension. 6. Dyslipidemia. 7. Diabetic. 8. Neuropathy. In regards to her COPD exacerbation, patient improved over the course of her hospital stay with IV steroids, and antibiotics. Will CONTINUE incentive spirometry. Incentive spirotmetry not at bedside Changed to oral steroids yesterday. Patient received levofloxacin yesterday. give z pack today. Restarted home IH meds today. Awaiting placement to rehab. 2. History of hypertension, at goal. will continue home meds 3. History of neuropathy, will continue Neurontin 4. Diabetic,A1C us ok in the 7's for a patient who is 86. Will continue Insulin sliding scale. Continue home dose of the Levemir. Informed Glycemic control that we will decrease solumedrol to q12h. 5. Deep venous thrombosis prophylaxis Lovenox and GI prophylaxis is Protonix. 6. Due to ambulatory dysfunction, will refer to physical therapy. Total Time Spent: Greater than 30 minutes This includes examination of the patient, discharge planning, medication reconciliation, and communication with other providers. Discharge Instructions Please refer to the electronic Patient Visit Report (Discharge Instructions) for additional information.
== END 2017-01-31 11:40 | DRG 192 ==
LOC: EDBD 11:48 → C.EDC 11:49 → C.MED 14:14 → ENRESERV 15:31
PROVIDERS: ADMIT Hospitalist; ATTEND Internal Medicine Sports Medicine
DX: J44.1 Chronic obstructive pulmonary disease with (acute) exacerbation (principal); D72.829 Elevated white blood cell count, unspecified; H91.90 Unspecified hearing loss, unspecified ear; I10 Essential (primary) hypertension; E78.5 Hyperlipidemia, unspecified; E11.40 Type 2 diabetes mellitus with diabetic neuropathy, unspecified; R26.81 Unsteadiness on feet; Z85.118 Personal history of other malignant neoplasm of bronchus and lung; Z87.891 Personal history of nicotine dependence; Z79.4 Long term (current) use of insulin; Z79.82 Long term (current) use of aspirin; Z79.83 Long term (current) use of bisphosphonates; Z82.49 Family history of ischemic heart disease and other diseases of the circulatory system

== ENCOUNTER 2017-03-02 16:02 | Inpatient (IN) | payer OTHER, BC ==
[~2017-03-02] VITALS: Ht 170.2 cm; Wt 72.5 kg
[~2017-03-02 16:02] MED LIST changes: -ALBU1AER9 INH; +ALEN70TA2 PO; -ASCO500T16 PO; +ATOR-22 PO; -ATOR-24 PO; +CETI10TA84 PO; +CHOL20007 PO; +DEXT30TA7 PO; -ESTCR PV; -FLAX100025 PO; -GABA400C PO; +GABA600T PO; -GLIM2TAB2 PO; -GLUCTAB7 PO; +INSU3INJ3 SC; -KETO2CRE14; +LTRCR30 TOP; -METF-383 PO; -METR-162 PO; +NRN600 PO; +NVLGI/PEN SC; +NVLGIPEN SC; +OMEG10007 PO; -OMEG1CAP81 PO; +SPRIN/30 INH; -TIOTCAP INH; +VITA100C2 PO; -VITA100C4 PO; +VNTHFA/IN INH
[2017-03-02] MEDS ORDERED: SODIUM CHLORIDE 0.9% 1000ML 1,000 ML IV STA (16:06)
[2017-03-02 16:47] LABS: BASO % 0.2 %; BASO ABS # 0.03 K/uL (0-0.2); COMPLETE YES; EOS % 0.3 %; HEMATOCRIT 33.3 % (37-47); LYMPH ABS # 1.36 K/uL (1.2-3.4); MEAN CELL VOLUME 88.8 fL (80-100); MEAN CORPUSCULAR HEMOGLOBIN 28.3 pg (25-34); MEAN CORPUSCULAR HGB CONC 31.8 g/dl (32-36); MEAN PLATELET VOLUME 8.7 fL (7.4-10.4); MONO % 7.4 %; NEUT % 81.1 %; PLATELET COUNT 490 K/uL (130-400); RED BLOOD COUNT 3.75 M/uL (4.2-5.4); WHITE BLOOD COUNT 13.59 K/uL (4.8-10.8)
[2017-03-02] MEDS ORDERED: GABA-113 PO ×3 (16:53)
[2017-03-02] MEDS ORDERED: INSDGIPEN SC (16:53)
--- NOTE | 2017-03-02 16:54 | DIAGNOSTIC IMAGING REPORT ---
CHEST ONE VIEW PORTABLE HISTORY: 86 years-old Female EVALUATE WEAKNESS acute weakness. COMPARISON: Chest radiograph 01/27/2017 TECHNIQUE: Portable upright AP view of the chest FINDINGS: Cardiac silhouette is within normal limits. There is enlargement of the pulmonary vasculature suggesting pulmonary vascular congestion and/or pulmonary arterial hypertension. No overt pulmonary edema. There is atherosclerosis of the aorta. Emphysematous changes are again noted with areas of interstitial coarsening suggesting chronic scarring. Persistent left basilar opacity is noted which has slightly improved. Blunting of left costophrenic angle suggests small effusion. No pneumothorax. The bones are grossly intact. IMPRESSION: 1. Persistent left basilar opacity suggesting atelectasis or scarring with probable small left effusion . 2. Emphysema. 3. Suggested pulmonary arterial hypertension. The above report was generated using voice recognition software. It may contain grammatical, syntax or spelling errors. Electronically signed by: Daniel Mccoy M.D. 03/02/2017 4:53 PM Dictated Date/Time: 03/02/2017 4:50 PM
[2017-03-02 16:55] LABS: INR 1.2 (0.9-1.1); PARTIAL THROMBOPLASTIN RATIO 1.1; PROTHROMBIN TIME (PATIENT) 12.4 SECONDS (9.0-12.0)
[2017-03-02] MEDS ORDERED: CYAN100020 PO (16:59)
[2017-03-02 17:01] LABS: URINE APPEARANCE CLEAR (CLEAR); URINE BILIRUBIN NEG (NEG); URINE COLOR YELLOW; URINE NITRITE NEG (NEG); URINE SPECIFIC GRAVITY 1.019 (1.000-1.030); UROBILINOGEN NEG (NEG)
--- NOTE | 2017-03-02 17:04 | DIAGNOSTIC IMAGING REPORT ---
HEAD WITHOUT CONTRAST (CT) CLINICAL HISTORY: 86 years-old Female with weakness, fall. Acute weakness and fall. Initial exam TECHNIQUE: Multiple axial CT images of the head were obtained without contrast. A dose lowering technique was utilized adhering to the principles of ALARA. CT DOSE: 601.98 mGy.cm COMPARISON: None. FINDINGS: No acute intracranial hemorrhage, midline shift, mass, large territorial ischemia or abnormal extra-axial collection. Moderate atrophy. Background chronic microvascular ischemic changes. The calvarium is intact. The paranasal sinuses, mastoid air cells, and middle ear cavities are clear. IMPRESSION: 1. No acute intracranial abnormality. No hemorrhage or calvarial fracture. 2. Age related findings of atrophy with chronic microvascular ischemic changes. The above report was generated using voice recognition software. It may contain grammatical, syntax or spelling errors. Electronically signed by: Daniel Mccoy M.D. 03/02/2017 5:03 PM Dictated Date/Time: 03/02/2017 5:00 PM
[2017-03-02 17:05] LABS: BUN/CREATININE RATIO 26.8 (10-20); CALCIUM 9.9 mg/dl (8.5-10.1); CREATININE 1.57 mg/dl (0.60-1.20); MAGNESIUM 1.6 mg/dl (1.8-2.4); POTASSIUM 5.5 mmol/L (3.5-5.1)
[2017-03-02 17:13] LABS: MANUAL MICROSCOPIC REQUIRED? NO; REVIEW REQ? NO
[2017-03-02 17:14] LABS: CKMB/CK RATIO 2.9 (0-3.0); THYROID STIMULATING HORMONE 2.26 uIu/ml (0.300-4.500)
[2017-03-02] MEDS ORDERED: LEVAQUIN 750MG / 150ML D5W IV STA (17:53)
[2017-03-02] MEDS ORDERED: VANCOMYCIN INJ 1,250 MG in SODIUM CHLORIDE 0.9% 250ML 250 ML IV STA (18:29)
[2017-03-02 19:04] VITALS: BP 109/59; PULSE 81; TEMP 36.4; BMI 25.0
[2017-03-02] MEDS ORDERED: MAGNESIUM HYDROXIDE SUSP 30 ML UDC PO PRN (20:00)
[2017-03-02] MEDS ORDERED: ACETAMINOPHEN 325 MG TAB PO PRN (20:00)
[2017-03-02] MEDS ORDERED: ALBUTEROL HFA 8 GM INHALER INH PRN (20:00)
[2017-03-02] MEDS ORDERED: ONDANSETRON INJ 2 MG/ML 2 ML VIAL IV PRN (20:00)
[2017-03-02] MEDS ORDERED: POLYETHYLENE (MIRALAX) 17 GM PACK PO PRN (20:00)
[2017-03-02] MEDS ORDERED: MAGNESIUM SULFATE 1GM / D5W 1 GM in PREMIXED IN D5W 100 ML IV STA (20:30)
--- NOTE | 2017-03-02 21:11 | History and Physical ---
History & Physical Date & Time of Service: Mar 02, 2017 at 21:03 Chief Complaint: Pcp Referred Pt To Er To Be Eval For Uti, Weakness Primary Care Physician: RV. Balbuena MD History of Present Illness Source: patient, family, clinic records, hospital records Due to somnolence history was primarily taken by hien puentes. This is an 86 yo f with a history of COPD and left lower lobectomy for lung cancer that is presenting to us with worsening cough, generalized weakness and a fall which occurred this afternoon. This patient was recently admitted on Jan 26 for pneumonia/ COPD exacerbation where she was treated with levaquin and transitioned to azithro and then transferred to [facility] for further care. After discharge from [facility] the patient has been at home however has been taken care of by her caretakers which are available 07/12. The care takers had noticed that the patient has had worsening weakness recently and has had an extremely poor appetite. They were concerned that the patient may be suffering from a UTI so they called her stepson who came to the house to check up on her. Since she was so weak he had encouraged her to come to the hospital for assessment. While transferring to the car she was so weak she had fallen onto her bottom however according to the hien son it was "gently". It required two people to lift her back up. She denies any pain except at the base of her coccyx which does not radiate. While interviewing the stepson the patient was producing large amounts of purulent sputum which was non bloody. Past Medical/Surgical History Medical Problems: (1) COPD (chronic obstructive pulmonary disease) Status: Chronic (2) DM (diabetes mellitus) Status: Chronic (3) Lung cancer Status: Chronic (4) Neuropathy Status: Chronic Family History Cancer Heart disease Social History Smoking Status: Former Smoker Smokeless Tobacco Use: No Alcohol Use: none Drug Use: none Marital Status: Housing status: other Occupational Status: retired Immunizations History of Influenza Vaccine: Unknown History of Tetanus Vaccine?: Unknown History of Pneumococcal: Unknown History of Hepatitis B Vaccine: Unknown Multi-Drug Resistant Organisms History of MDRO: No Allergies Coded Allergies: No Known Allergies (Unverified , 01/26/17) Home Medications Scheduled Alendronate Sodium (Fosamax), 70 MG PO WK Aspirin (Aspirin 81), 81 MG PO DAILY Calcium Carbonate-Vitamin D (Calcium 600 + D), 1 TAB PO DAILY Cetirizine (Zyrtec), 10 MG PO DAILY Cholecalciferol (Vitamin D3), 2,000 INTER.UNIT PO DAILY Cyanocobalamin (Vitamin B12), 1,000 MCG PO DAILY Fish Oil ([place]-3), 1 CAP PO DAILY Fluticasone Prop/Salmeterol (Advair Diskus 250-50 Mcg/Dose), 1 PUFF INH BID Gabapentin (Neurontin), 300 MG PO QAM Gabapentin (Neurontin), 300 MG PO Afternoon Gabapentin (Neurontin), 600 MG PO HS Insulin Aspart (Novolog Flexpen), 20 UNITS SC QAM Insulin Aspart (Novolog Flexpen), 30 UNITS SC WITH SUPPER Insulin Glargine (Lantus Solostar), 20 UNITS SC UD Losartan Potassium (Cozaar), 100 MG PO DAILY Multiple Vitamin (Multivitamin), 1 TAB PO DAILY Multiple Vitamins W/ Minerals (Macular Vitamin Benefit), 2 TABS PO DAILY Thiamine Hcl (Vitamin B-1), 250 MG PO DAILY Tiotropium [place] (Spiriva Handihaler), 1 CAP INH DAILY Vitamin E (Vitamin E 100 Iu), 100 INTER.UNIT PO DAILY Scheduled PRN Albuterol Hfa (Ventolin Hfa), 2 PUFFS INH Q4H PRN for SOB/Wheezing Dextromethorphan-Guaifenesin (Mucinex Dm), 1 TAB PO Q12 PRN for Congestion Review of Systems Unable to obtain meaningful ROS secondary to somnolence Physical Exam Vital Signs Date Time Temp Pulse Resp B/P (MAP) Pulse Ox O2 Delivery O2 Flow Rate FiO2 03/02/17 20:47 87 16 110/61 100 03/02/17 19:26 84 20 84/50 97 Nasal Cannula 2.0 03/02/17 19:04 Nasal Cannula 2.0 03/02/17 18:03 76 28 92/52 97 Nasal Cannula 2.0 03/02/17 17:14 78 20 94/55 97 Nasal Cannula 2.0 03/02/17 16:20 88 03/02/17 16:12 97 Nasal Cannula 2.0 03/02/17 16:07 36.3 90 25 94/55 97 Nasal Cannula 2.0 General Appearance: no apparent distress, + pertinent finding (somnolent but arousable) Head: normocephalic Eyes: normal inspection ENT: normal ENT inspection (NIKOLAI) Neck: supple Respiratory/Chest: + decreased breath sounds (left base with some fine crackles noted) Cardiovascular: regular rate, rhythm, no murmur, normal peripheral pulses Abdomen/GI: normal bowel sounds, non tender, soft Back: normal inspection, no CVA tenderness Extremities/Musculoskelatal: no calf tenderness, no pedal edema, normal range of motion, + pertinent finding (tenderness on palpation of the coccyx) Neurologic/Psych: no motor/sensory deficits, oriented x 3 (however needs some coaxing to respond to questions) Skin: normal color, warm/dry, no rash Lymphatic: no adenopathy Diagnostics Laboratory Results Results Past 24 Hours Test 03/02/17 16:29 03/02/17 16:45 Range/Units White Blood Count 13.59 4.8-10.8 K/uL Red Blood Count 3.75 4.2-5.4 M/uL Hemoglobin 10.6 12.0-16.0 g/dL Hematocrit 33.3 37-47 % Mean Corpuscular Volume 88.8 80-100 fL Mean Corpuscular Hemoglobin 28.3 25-34 pg Mean Corpuscular Hemoglobin Concent 31.8 32-36 g/dl Platelet Count 490 130-400 K/uL Mean Platelet Volume 8.7 7.4-10.4 fL Neutrophils (%) (Auto) 81.1 % Lymphocytes (%) (Auto) 10.0 % Monocytes (%) (Auto) 7.4 % Eosinophils (%) (Auto) 0.3 % Basophils (%) (Auto) 0.2 % Neutrophils # (Auto) 11.01 1.4-6.5 K/uL Lymphocytes # (Auto) 1.36 1.2-3.4 K/uL Monocytes # (Auto) 1.01 0.11-0.59 K/uL Eosinophils # (Auto) 0.04 0-0.5 K/uL Basophils # (Auto) 0.03 0-0.2 K/uL RDW Standard Deviation 49.0 36.4-46.3 fL RDW Coefficient of Variation 15.0 11.5-14.5 % Immature Granulocyte % (Auto) 1.0 % Immature Granulocyte # (Auto) 0.14 0.00-0.02 K/uL Prothrombin Time 12.4 9.0-12.0 SECONDS Prothromb Time International Ratio 1.2 0.9-1.1 Activated Partial Thromboplast Time 28.5 21.0-31.0 SECONDS Partial Thromboplastin Ratio 1.1 Sodium Level 136 136-145 mmol/L Potassium Level 5.5 3.5-5.1 mmol/L Chloride Level 101 98-107 mmol/L Carbon Dioxide Level 29 21-32 mmol/L Anion Gap 6.0 3-11 mmol/L Blood Urea Nitrogen 42 7-18 mg/dl Creatinine 1.57 0.60-1.20 mg/dl Est Creatinine Clear Calc Drug Dose 24.6 ml/min Estimated GFR () 34.0 Estimated GFR (Non- 29.3 BUN/Creatinine Ratio 26.8 10-20 Random Glucose 162 70-99 mg/dl Bedside Lactic Acid Venous 1.66 0.90-1.70 mmol/L Calcium Level 9.9 8.5-10.1 mg/dl Magnesium Level 1.6 1.8-2.4 mg/dl Total Bilirubin 0.3 0.2-1 mg/dl Direct Bilirubin 0.1 0-0.2 mg/dl Aspartate Amino Transf (AST/SGOT) 37 15-37 U/L Alanine Aminotransferase (ALT/SGPT) 40 12-78 U/L Alkaline Phosphatase 98 45-117 U/L Total Creatine Kinase 45 26-192 U/L Creatine Kinase MB 1.3 0.5-3.6 ng/ml Creatine Kinase MB Ratio 2.9 0-3.0 Troponin I 0.017 0-0.045 ng/ml Total Protein 7.0 6.4-8.2 gm/dl Albumin 2.2 3.4-5.0 gm/dl Lipase 113 73-393 U/L Thyroid Stimulating Hormone (TSH) 2.260 0.300-4.500 uIu/ml Urine Color YELLOW Urine Appearance CLEAR CLEAR Urine pH 5.0 4.5-7.5 Urine Specific Mccoy 1.019 1.000-1.030 Urine Protein NEG NEG Urine Glucose (UA) NEG NEG Urine Ketones NEG NEG Urine Occult Blood NEG NEG Urine Nitrite NEG NEG Urine Bilirubin NEG NEG Urine Urobilinogen NEG NEG Urine Leukocyte Esterase NEG NEG Microbiology Results 03/02/17 Blood Culture, Received Pending 03/02/17 Blood Culture, Received Pending 03/02/17 Urine Culture, Received Pending Diagnostic Radiology [~ rep ct add3]] HEAD WITHOUT CONTRAST (CT) CLINICAL HISTORY: 86 years-old Female with weakness, fall. Acute weakness and fall. Initial exam TECHNIQUE: Multiple axial CT images of the head were obtained without contrast. A dose lowering technique was utilized adhering to the principles of ALARA. CT DOSE: 601.98 mGy.cm COMPARISON: None. FINDINGS: No acute intracranial hemorrhage, midline shift, mass, large territorial ischemia or abnormal extra-axial collection. Moderate atrophy. Background chronic microvascular ischemic changes. The calvarium is intact. The paranasal sinuses, mastoid air cells, and middle ear cavities are clear. IMPRESSION: 1. No acute intracranial abnormality. No hemorrhage or calvarial fracture. 2. Age related findings of atrophy with chronic microvascular ischemic changes. [~ rep ct add3]] CHEST ONE VIEW PORTABLE HISTORY: 86 years-old Female EVALUATE WEAKNESS acute weakness. COMPARISON: Chest radiograph 01/27/2017 TECHNIQUE: Portable upright AP view of the chest FINDINGS: Cardiac silhouette is within normal limits. There is enlargement of the pulmonary vasculature suggesting pulmonary vascular congestion and/or pulmonary arterial hypertension. No overt pulmonary edema. There is atherosclerosis of the aorta. Emphysematous changes are again noted with areas of interstitial coarsening suggesting chronic scarring. Persistent left basilar opacity is noted which has slightly improved. Blunting of left costophrenic angle suggests small effusion. No pneumothorax. The bones are grossly intact. IMPRESSION: 1. Persistent left basilar opacity suggesting atelectasis or scarring with probable small left effusion . 2. Emphysema. 3. Suggested pulmonary arterial hypertension. EKG HR 91, QTc 425, NSR, no ectopy or ischemic changes noted Impression Assessment and Plan This is an 86 yo f with a history of COPD, lung cancer that is suffering from productive cough and generalized weakness which is concerning for developing pneumonia. The patient will be admitted to med surg as she is hemodynamically stable and Levofloxacin initiated. She did receive a dose of Vanco in the ED. No abnormalities on UA noted. She was also found to have BRENNAN as well as an elevated K. This is reflective of the patient's poor appetite and could be contributing to generalized weakness. Patient will be rehydrated with NSS 125 cc /h. Pneumonia - Will admit to med surg - Levofloxacin; renally dosed - duonebs - O2 per nursing protocol - procalcitonin - gram stain from sputum ordered - blood culture pending - incentive saturnino Chronic hypoxic respiratory failure secondary to COPD and lung cancer - Continue Advair, Spiriva - Albuterol available prn - no Wheezing noted on examination Hyperkalemia - could be secondary to hemolysis - will recheck in am - Will hold Losartan 100 mg BRENNAN secondary to dehydration and contributing to weakness - NSS @ 125 cc/h - will recheck in the am DMIII - Lantus 20 units pm - insulin ISS with BSG AC HS Diabetic Neuropathy - continue gabapentin; 300 mg in am and afternoon, 600 mg hs DVT Prophylaxis - SCD, heparin bid Attending Addendum: I have physically seen and examined this patient, have directed the resident's medical activities, and agree with the H&P as noted above with the following exceptions as noted. The patient is somnolent, unresponsive, resting comfortably and in no acute distress. History and review of systems provided by pattie in attendance. HEENT--PERRL, EOMI, mucous membranes and oropharynx dry. Neck--supple, no JVD or bruits, thyroid normal, trachea midline, no adenopathy. Heart--normal S1 and S2, no extra beats, no murmurs, rubs or gallops. Lungs--decreased breath sounds throughout no respiratory distress, no accessory muscle use. Abdomen--normal bowel sounds and soft, nontender and nondistended, no hernias or masses, no organomegaly. Extremities--no cyanosis, clubbing or edema. There are good distal pulses b/l. Dermatologic--normal skin turgor, normal color, warm and dry, no abnormal lymph nodes, no rash. Neurologic--cranial nerves II through XII grossly intact. Rheumatologic--coccyx tender to palpation Psychiatric--normal affect. Assessment and Plan: Pneumonia/COPD/lung cancer-- Levofloxacin IV. Duonebs every 4 hours while awake and every 2 hours when necessary. Sputum Gram stain and culture Follow blood cultures Nasal cannula oxygen, titrate to keep pulse ox greater than or equal to 92%. Continue Advair and Spiriva. Hyperkalemia/AKA-- Hold losartan. Normal saline at 125 ML's per hour. BMP and magnesium level in a.m. Diabetes mellitus-- Hold Lantus 20 units subcutaneous every afternoon until with clear that she is eating regularly. Place on Accu-Cheks before meals and at bedtime with NovoLog coverage per scale. Peripheral neuropathy--continue gabapentin 300 mg by mouth in the a.m. and afternoon, and 600 mg at bedtime. Deconditioning-- Consult PT/OT when patient is able to participate Level of Care Med/Surg Advanced Directives Existing Living Will: Yes Existing Power of Food Service Aide: Yes Resuscitation Status FULL RESUSCITATION VTE Prophylaxis VTE Risk Assessment Done? Y/N: Yes Risk Level: Moderate Given or contraindicated: Unfractionated heparin SQ, SCD's Social Service Consult Lives in Personal Care Note Total Time: Critical Care 30 - 74 minutes Additional Copies To RV. Balbuena MD
[2017-03-02] MEDS: GABAPENTIN 300 MG CAP PO SCH ×2 (22:00→22:38)
[2017-03-02] MEDS: INSULIN ASPART 100 UNITS/ML 3 ML PEN SC SCH ×2 (22:00→22:46)
[2017-03-02] MEDS ORDERED: LEVOFLOXACIN CONSULT ACTIVE PRN (22:30)
[2017-03-02] MEDS: FLUTICASONE/SALMETEROL 250/50 (ADVAIR) 14 PUFF/1 INHALER INH SCH (22:38)
[2017-03-02] MEDS: SODIUM CHLORIDE 0.9% 1000ML 1,000 ML IV SCH (22:39)
[2017-03-02] MEDS ORDERED: INSULIN GLARGINE SOLOSTAR 100 UNITS/ML 3 ML PEN SC SCH (22:45)
[2017-03-02 23:20] VITALS: BP_SYST 86; BP_SYST 87; BP_DIAS 43; BP_DIAS 47; PULSE 96; TEMP 36.5; O2SAT 99
[2017-03-02] MEDS ORDERED: DEXTROSE 50% 50 ML SYR IV PRN (23:45)
[2017-03-02] MEDS ORDERED: GLUCAGON FOR INJ 1 MG VIAL SQ PRN (23:45)
[2017-03-02] MEDS ORDERED: GLUCOSE 10 TABS/TUBE PO PRN (23:45)
[2017-03-02] MEDS ORDERED: GLUCOSE 40% GEL 15 GM TUBE PO PRN (23:45)
[2017-03-03] VITALS (8 sets, daily range): BP systolic 101–126; BP diastolic 60–88; PULSE 81–95; TEMP 36.7–37.7; O2SAT 87–100; Ht 170.2 cm; Wt 72.5 kg
--- NOTE | 2017-03-03 00:39 | EMERGENCY ROOM VISIT NOTE ---
History Report prepared by Daniel: Awilda Garcia Under the Supervision of: Dr. Tan Ramírez M.D. 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 The patient presents to the ED by EMS. She had an appointment with her PCP today for a possible UTI. She did not make her appointment because she fell. She fell in the bathroom while trying to pull up her pants. She fell onto her bottom. She called her PCP to explain why she could not make her appointment and was sent to the ED for UTI and weakness. She states that she is feeling well. Her initial blood pressure taken by EMS was 80/ 48. She was not given anything in route. She denies any injury with her fall today. She has a history of COPD. She was recently started on oxygen all day. Pt denies LOC, headache, fevers, chills, diaphoresis, visual changes, neck pain , chest pain, breathing difficulties, nausea, vomiting, abdominal pain, back pain, melena, hematochezia, urinary symptoms, numbness, weakness, lymphadenopathy, rash, or other complaints. 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 A total of ten systems were reviewed and were otherwise negative. Past Medical & Surgical Medical Problems: (1) COPD (chronic obstructive pulmonary disease) (2) DM (diabetes mellitus) (3) Generalized weakness (4) Lung cancer (5) Neuropathy (6) Pneumonia Family History Cancer Heart disease Social History Smoking Status: Former Smoker Alcohol Use: none Marital Status: Housing Status: lives alone Occupation Status: retired Current/Historical Medications Scheduled Alendronate Sodium (Fosamax), 70 MG PO WK Aspirin (Aspirin 81), 81 MG PO DAILY Calcium Carbonate-Vitamin D (Calcium 600 + D), 1 TAB PO DAILY Cetirizine (Zyrtec), 10 MG PO DAILY Cholecalciferol (Vitamin D3), 2,000 INTER.UNIT PO DAILY Cyanocobalamin (Vitamin B12), 1,000 MCG PO DAILY Fish Oil ([place]-3), 1 CAP PO DAILY Fluticasone Prop/Salmeterol (Advair Diskus 250-50 Mcg/Dose), 1 PUFF INH BID Gabapentin (Neurontin), 300 MG PO QAM Gabapentin (Neurontin), 300 MG PO Afternoon Gabapentin (Neurontin), 600 MG PO HS Insulin Aspart (Novolog Flexpen), 20 UNITS SC QAM Insulin Aspart (Novolog Flexpen), 30 UNITS SC WITH SUPPER Insulin Glargine (Lantus Solostar), 20 UNITS SC UD Losartan Potassium (Cozaar), 100 MG PO DAILY Multiple Vitamin (Multivitamin), 1 TAB PO DAILY Multiple Vitamins W/ Minerals (Macular Vitamin Benefit), 2 TABS PO DAILY Thiamine Hcl (Vitamin B-1), 250 MG PO DAILY Tiotropium [place] (Spiriva Handihaler), 1 CAP INH DAILY Vitamin E (Vitamin E 100 Iu), 100 INTER.UNIT PO DAILY Scheduled PRN Albuterol Hfa (Ventolin Hfa), 2 PUFFS INH Q4H PRN for SOB/Wheezing Dextromethorphan-Guaifenesin (Mucinex Dm), 1 TAB PO Q12 PRN for Congestion Allergies Coded Allergies: No Known Allergies (Unverified , 01/26/17) Physical Exam Vital Signs Date Time Temp Pulse Resp B/P (MAP) Pulse Ox O2 Delivery O2 Flow Rate FiO2 03/02/17 19:26 84 20 84/50 97 Nasal Cannula 2.0 03/02/17 19:04 36.4 81 18 109/59 Nasal Cannula 2.0 03/02/17 18:03 76 28 92/52 97 Nasal Cannula 2.0 03/02/17 17:14 78 20 94/55 97 Nasal Cannula 2.0 03/02/17 16:20 88 03/02/17 16:12 97 Nasal Cannula 2.0 03/02/17 16:07 36.3 90 25 94/55 97 Nasal Cannula 2.0 Physical Exam GENERAL: Awake, alert, mildly ill-appearing, in no distress, productive sounding cough present. HENT: Normocephalic, atraumatic. Oropharynx unremarkable. EYES: Normal conjunctiva. Sclera non-icteric. NECK: Supple. No nuchal rigidity. FROM. No JVD. RESPIRATORY: Scattered rales. CARDIAC: Borderline tachycardic rate, normal rhythm. Extremities warm and well perfused. Pulses equal. ABDOMEN: Soft, non-distended. No tenderness to palpation. No rebound or guarding. No masses. RECTAL: Deferred. MUSCULOSKELETAL: Chest examination reveals no tenderness. The back is symmetrical on inspection without obvious abnormality. There is no CVA tenderness to palpation. No joint edema. Upper and lower extremities atraumatic. Hips nontender. Pelvis stable to rock. LOWER EXTREMITIES: Calves are equal size bilaterally and non-tender. No edema. No discoloration. NEURO: Normal sensorium. No sensory or motor deficits noted. SKIN: No rash or jaundice noted. Medical Decision & Procedures ER Provider Diagnostic Interpretation: Radiology results as stated below per my review and radiologist interpretation: CHEST ONE VIEW PORTABLE HISTORY: 86 years-old Female EVALUATE WEAKNESS acute weakness. COMPARISON: Chest radiograph 01/27/2017 TECHNIQUE: Portable upright AP view of the chest FINDINGS: Cardiac silhouette is within normal limits. There is enlargement of the pulmonary vasculature suggesting pulmonary vascular congestion and/or pulmonary arterial hypertension. No overt pulmonary edema. There is atherosclerosis of the aorta. Emphysematous changes are again noted with areas of interstitial coarsening suggesting chronic scarring. Persistent left basilar opacity is noted which has slightly improved. Blunting of left costophrenic angle suggests small effusion. No pneumothorax. The bones are grossly intact. IMPRESSION: 1. Persistent left basilar opacity suggesting atelectasis or scarring with probable small left effusion . 2. Emphysema. 3. Suggested pulmonary arterial hypertension. The above report was generated using voice recognition software. It may contain grammatical, syntax or spelling errors. Electronically signed by: Daniel Mccoy M.D. 03/02/2017 4:53 PM Dictated Date/Time: 03/02/2017 4:50 PM HEAD WITHOUT CONTRAST (CT) CLINICAL HISTORY: 86 years-old Female with weakness, fall. Acute weakness and fall. Initial exam TECHNIQUE: Multiple axial CT images of the head were obtained without contrast. A dose lowering technique was utilized adhering to the principles of ALARA. CT DOSE: 601.98 mGy.cm COMPARISON: None. FINDINGS: No acute intracranial hemorrhage, midline shift, mass, large territorial ischemia or abnormal extra-axial collection. Moderate atrophy. Background chronic microvascular ischemic changes. The calvarium is intact. The paranasal sinuses, mastoid air cells, and middle ear cavities are clear. IMPRESSION: 1. No acute intracranial abnormality. No hemorrhage or calvarial fracture. 2. Age related findings of atrophy with chronic microvascular ischemic changes. The above report was generated using voice recognition software. It may contain grammatical, syntax or spelling errors. Electronically signed by: Daniel Mccoy M.D. 03/02/2017 5:03 PM Dictated Date/Time: 03/02/2017 5:00 PM Laboratory Results 03/02/17 16:29 Red Blood Count 3.75, Mean Corpuscular Volume 88.8, Mean Corpuscular Hemoglobin 28.3, Mean Corpuscular Hemoglobin Concent 31.8, Mean Platelet Volume 8.7, Neutrophils (%) (Auto) 81.1, Lymphocytes (%) (Auto) 10.0, Monocytes (%) (Auto) 7.4, Eosinophils (%) (Auto) 0.3, Basophils (%) (Auto) 0.2, Neutrophils # (Auto) 11.01, Lymphocytes # (Auto) 1.36, Monocytes # (Auto) 1.01, Eosinophils # (Auto) 0.04, Basophils # (Auto) 0.03 03/02/17 16:29 Test 03/02/17 16:29 03/02/17 16:45 White Blood Count 13.59 K/uL (4.8-10.8) Red Blood Count 3.75 M/uL (4.2-5.4) Hemoglobin 10.6 g/dL (12.0-16.0) Hematocrit 33.3 % (37-47) Mean Corpuscular Volume 88.8 fL (80-100) Mean Corpuscular Hemoglobin 28.3 pg (25-34) Mean Corpuscular Hemoglobin Concent 31.8 g/dl (32-36) Platelet Count 490 K/uL (130-400) Mean Platelet Volume 8.7 fL (7.4-10.4) Neutrophils (%) (Auto) 81.1 % Lymphocytes (%) (Auto) 10.0 % Monocytes (%) (Auto) 7.4 % Eosinophils (%) (Auto) 0.3 % Basophils (%) (Auto) 0.2 % Neutrophils # (Auto) 11.01 K/uL (1.4-6.5) Lymphocytes # (Auto) 1.36 K/uL (1.2-3.4) Monocytes # (Auto) 1.01 K/uL (0.11-0.59) Eosinophils # (Auto) 0.04 K/uL (0-0.5) Basophils # (Auto) 0.03 K/uL (0-0.2) RDW Standard Deviation 49.0 fL (36.4-46.3) RDW Coefficient of Variation 15.0 % (11.5-14.5) Immature Granulocyte % (Auto) 1.0 % Immature Granulocyte # (Auto) 0.14 K/uL (0.00-0.02) Prothrombin Time 12.4 SECONDS (9.0-12.0) Prothromb Time International Ratio 1.2 (0.9-1.1) Activated Partial Thromboplast Time 28.5 SECONDS (21.0-31.0) Partial Thromboplastin Ratio 1.1 Anion Gap 6.0 mmol/L (3-11) Est Creatinine Clear Calc Drug Dose 24.6 ml/min Estimated GFR () 34.0 Estimated GFR (Non- 29.3 BUN/Creatinine Ratio 26.8 (10-20) Bedside Lactic Acid Venous 1.66 mmol/L (0.90-1.70) Calcium Level 9.9 mg/dl (8.5-10.1) Magnesium Level 1.6 mg/dl (1.8-2.4) Total Bilirubin 0.3 mg/dl (0.2-1) Direct Bilirubin 0.1 mg/dl (0-0.2) Aspartate Amino Transf (AST/SGOT) 37 U/L (15-37) Alanine Aminotransferase (ALT/SGPT) 40 U/L (12-78) Alkaline Phosphatase 98 U/L (45-117) Total Creatine Kinase 45 U/L (26-192) Creatine Kinase MB 1.3 ng/ml (0.5-3.6) Creatine Kinase MB Ratio 2.9 (0-3.0) Troponin I 0.017 ng/ml (0-0.045) Total Protein 7.0 gm/dl (6.4-8.2) Albumin 2.2 gm/dl (3.4-5.0) Lipase 113 U/L (73-393) Thyroid Stimulating Hormone (TSH) 2.260 uIu/ml (0.300-4.500) Urine Color YELLOW Urine Appearance CLEAR (CLEAR) Urine pH 5.0 (4.5-7.5) Urine Specific [place] 1.019 (1.000-1.030) Urine Protein NEG (NEG) Urine Glucose (UA) NEG (NEG) Urine Ketones NEG (NEG) Urine Occult Blood NEG (NEG) Urine Nitrite NEG (NEG) Urine Bilirubin NEG (NEG) Urine Urobilinogen NEG (NEG) Urine Leukocyte Esterase NEG (NEG) Laboratory results reviewed by me Medications Administered Medications (Trade) Dose Ordered Sig/Sarkis Route Start Time Stop Time Status Last Admin Dose Admin Sodium Chloride 1,000 ml @ 125 mls/hr Q8H STAT IV 03/02/17 16:06 03/02/17 21:49 DC 03/02/17 16:40 125 MLS/HR Levofloxacin (Levaquin / D5W) 750 mg NOW STAT IV 03/02/17 17:53 03/02/17 17:54 DC 03/02/17 18:02 750 MG Vancomycin HCl 1250 mg/Sodium Chloride 275 ml @ 125 mls/hr NOW STAT IV 03/02/17 18:29 03/02/17 20:40 DC 03/02/17 19:24 125 MLS/HR ECG Indication: weakness Rate (beats per minute): 91 Rhythm: normal sinus Findings: T-wave inversion (Anterior), no ectopy ED Course 1612: The patient was evaluated in room B7. A complete history and physical exam was performed. 1606: NSS 1000 ml @ 125 mls/hr IV. 1753: Levofloxacin 750 mg IV. 1829: Vancomycin HCl 1250 mg/Sodium Chloride 275 ml @ 125 mls/hr IV. 1835: I reevaluated the patient. I discussed the test results and treatment plan with her and her family. The patient will be evaluated for further management. 1918: I discussed the patient's case with Dr. Grossman, [facility] hospitalist. The patient will be evaluated for further treatment and disposition. Medical Decision Triage Nursing notes reviewed. The patient's presentation and history were concerning for weakness. Etiologies such as metabolic, infection, hypo/hyperglycemia, electrolyte abnormalities, cardiac sources, intracerebral event, toxicologic, neurologic, as well as others were entertained. Patient was evaluated. Her chest x-ray was concerning. She had a heavy productive cough of yellow thick sputum. The patient had some mildly low blood pressure. She was gently hydrated. She had a mild leukocytosis on CBC. Chemistry panel was unremarkable. Cath urine specimen was negative. The patient had a lactate of 1.6. She also has a mild anemia. The patient was treated with IV Levaquin and IV vancomycin. Patient and family were informed. She will need further evaluation and management in the hospital. Consultation was made with internal medicine. The patient was evaluated for further management. Medication Reconcilliation Current Medication List: was personally reviewed by me Blood Pressure Screening Patient's blood pressure: Low blood pressure Consults Time Called: 1899 Consulting Physician: Dr. Grossman [facility] hospitalist Returned Call: 1917 Discussed the patient's case. The patient will be evaluated for further treatment and disposition. Impression Primary Impression: Weakness Additional Impression: Pneumonia Scribe Attestation The scribe's documentation has been prepared under my direction and personally reviewed by me in its entirety. I confirm that the note above accurately reflects all work, treatment, procedures, and medical decision making performed by me. Departure Information Dispostion Being Evaluated By Hospitalist Referrals RV. Balbuena MD (PCP) Problem Qualifiers
[2017-03-03] MEDS ORDERED: INFLUENZA VACCINE HIGH DOSE 65+ 0.5 ML SYR IM. ONE (03:45)
[2017-03-03] MEDS ORDERED: INFLUENZA ADMINISTRATION CHARGE ONE (03:45)
[2017-03-03] MEDS: SODIUM CHLORIDE 0.9% 1000ML 1,000 ML IV SCH ×2 (04:06→14:03)
[2017-03-03 06:27] LABS: BASO % 0.2 %; BASO ABS # 0.02 K/uL (0-0.2); COMPLETE YES; HEMATOCRIT 30.1 % (37-47); IG% 0.6 %; LYMPH % 15.6 %; LYMPH ABS # 1.66 K/uL (1.2-3.4); MEAN CELL VOLUME 89.6 fL (80-100); MEAN CORPUSCULAR HEMOGLOBIN 28.3 pg (25-34); MEAN CORPUSCULAR HGB CONC 31.6 g/dl (32-36); MEAN PLATELET VOLUME 8.4 fL (7.4-10.4); MONO % 8.7 %; NEUT % 73.9 %; PLATELET COUNT 417 K/uL (130-400); RED BLOOD COUNT 3.36 M/uL (4.2-5.4); WHITE BLOOD COUNT 10.67 K/uL (4.8-10.8)
[2017-03-03 06:38] LABS: INR 1.2 (0.9-1.1); PARTIAL THROMBOPLASTIN RATIO 1.2; PROTHROMBIN TIME (PATIENT) 12.7 SECONDS (9.0-12.0)
[2017-03-03] MEDS: ALBUT/IPRATROP 3MG/0.5MG NEB 3 ML VIAL INH SCH ×3 (06:55→23:03)
[2017-03-03 06:57] LABS: BUN/CREATININE RATIO 26.2 (10-20); CALCIUM 9.4 mg/dl (8.5-10.1); CREATININE 1.41 mg/dl (0.60-1.20); MAGNESIUM 1.7 mg/dl (1.8-2.4); POTASSIUM 4.8 mmol/L (3.5-5.1)
[2017-03-03] MEDS: FLUTICASONE/SALMETEROL 250/50 (ADVAIR) 14 PUFF/1 INHALER INH SCH ×2 (07:57→20:00)
[2017-03-03] MEDS: TIOTROPIUM BROMIDE 5 PUFF/90 MCG INH INH SCH (07:59)
[2017-03-03] MEDS: CALCIUM 600MG + VIT D 400 IU TAB PO SCH (08:00)
[2017-03-03] MEDS ORDERED: MAGNESIUM OXIDE 400 MG TAB PO ONE (08:00)
[2017-03-03] MEDS: OMEGA-3 (PURIFIED FISH OIL) 1 GM CAP PO SCH (08:01)
[2017-03-03] MEDS: CETIRIZINE HCL 10 MG TAB PO SCH (08:01)
[2017-03-03] MEDS: MULTIVITAMIN TAB PO SCH (08:02)
[2017-03-03] MEDS: GABAPENTIN 300 MG CAP PO SCH ×3 (08:02→21:16)
[2017-03-03] MEDS: CHOLECALCIFEROL 1000 INTER.UNIT TAB PO SCH (08:02)
[2017-03-03] MEDS: TOCOPHERYL, DL-ALPHA 100 INTERUNIT CAP PO SCH (08:03)
[2017-03-03] MEDS: THIAMINE HCL 50 MG TAB PO SCH (08:03)
[2017-03-03] MEDS: CEROVITE ADV FORMULA TAB PO SCH (08:04)
[2017-03-03] MEDS: CYANOCOBALAMIN 500 MCG TAB (VIT B-12) PO SCH (08:05)
[2017-03-03] MEDS: ASPIRIN 81 MG ECTAB PO SCH (08:06)
[2017-03-03] MEDS: HEPARIN SOD 5000 UNIT/0.5 ML CARP SQ SCH ×2 (08:48→21:15)
[2017-03-03] MEDS: INSULIN ASPART 100 UNITS/ML 3 ML PEN SC SCH ×4 (08:48→21:15)
--- NOTE | 2017-03-03 12:56 | ECHOCARDIOGRAM REPORT ---
*NOTICE TO RECEIVING [employer] This information is strictly Confidential and protected under [place] law. [place] law prohibits you from making any further disclosure of this information unless further disclosure is expressly permitted by the written consent of the person to whom it pertains or is authorized by law. A general authorization for the release of medical or other information is not sufficient for this purpose. Hospital accepts no responsibility if the information is made available to any other person, INCLUDING THE PATIENT. Interpretation Summary * Name: АЛЕКСАНДР ZAMORANO Study Date: 03/03/2017 09:28 AM BP: 101/60 mmHg * Patient Location: [id number] HR: 81 * : 1930 (M/d/yyy) Gender: Female Height: 67 in * Age: 86 yrs Ethnicity: [place] Weight: 159 lb * Ordering Physician: Jessica Lynch * Referring Physician: RIVER Balbuena. * Performed By: Reshma Garcia RDCS * * Reason For Study: Shortness of breath * BSA: 1.8 m2 * -- Conclusions -- * The left ventricle is hyperdynamic. * No regional wall motion abnormalities noted. * Ejection Fraction = >70 %. * There is mild concentric left ventricular hypertrophy. * Grade I diastolic dysfunction, (abnormal relaxation pattern). * There is mild tricuspid regurgitation. Procedure Details * A complete two-dimensional transthoracic echocardiogram was performed (2D, M-mode, Doppler and color flow Doppler). Left Ventricle * The left ventricle is normal in size. * There is mild concentric left ventricular hypertrophy. * Ejection Fraction = >70 %. * The left ventricle is hyperdynamic. * No regional wall motion abnormalities noted. Right Ventricle * The right ventricle is not well visualized. * The right ventricular systolic function is normal as assessed by tricuspid annular plane systolic excursion (TAPSE) (normal >1.5 cm). Atria * The left atrial size is normal. * Right atrium not well visualized. * There is no evidence of atrial septal defect, but resolution does not allow assessment for a patent foramen ovale. Mitral Valve * The mitral valve is grossly normal. * There is mild to moderate mitral annular calcification. * There is no mitral valve stenosis. * Significant mitral regurgitation is absent. Tricuspid Valve * The tricuspid valve is not well visualized, but is grossly normal. * No significant tricuspid stenosis. * There is mild tricuspid regurgitation. Aortic Valve * The aortic valve is not well visualized. * The aortic valve opens well. * Aortic valve sclerosis moderate, without significant aortic valvular stenosis. * There is no significant aortic regurgitation. Pulmonic Valve * The pulmonary valve is not well seen, but the Doppler examination is normal without significant regurgitation or stenosis. Great Vessels * The aortic root is normal size. * The pulmonary is not well visualized. Pericardium/Pleural * There is no pericardial effusion. Great Vessels * Normal inferior vena cava size and collapsability with sniff indicates a normal right atrial pressure of 3 mmHg Left Ventricular Diastolic Function * Grade I diastolic dysfunction, (abnormal relaxation pattern). MMode 2D Measurements and Calculations IVSd 1.2 cm LVIDd 3.7 cm LVIDs 2.2 cm LVPWd 1.2 cm IVS/LVPW 0.98 FS 38.9 % EDV(Teich) 56.9 ml ESV(Teich) 17.0 ml EF(Teich) 70.1 % EDV(cubed) 49.3 ml ESV(cubed) 11.3 ml EF(cubed) 77.2 % LV mass(C)d 144.3 grams LV mass(C)dI 78.6 grams/m\S\2 SV(Teich) 39.9 ml SI(Teich) 21.8 ml/m\S\2 SV(cubed) 38.0 ml SI(cubed) 20.7 ml/m\S\2 Ao root diam 3.0 cm Ao root area 7.0 cm\S\2 ACS 1.5 cm LA dimension 2.7 cm asc Aorta Diam 3.1 cm LA/Ao 0.90 LVOT diam 2.0 cm LVOT area 3.0 cm\S\2 LVAd ap4 15.2 cm\S\2 LVLd ap4 5.9 cm EDV(MOD-sp4) 32.3 ml EDV(sp4-el) 33.1 ml LVAs ap4 6.8 cm\S\2 LVLs ap4 4.1 cm ESV(MOD-sp4) 10.5 ml ESV(sp4-el) 9.6 ml EF(MOD-sp4) 67.6 % EF(sp4-el) 70.9 % LVAd ap2 13.4 cm\S\2 LVLd ap2 6.0 cm EDV(MOD-sp2) 26.0 ml EDV(sp2-el) 25.4 ml LVAs ap2 5.9 cm\S\2 LVLs ap2 4.3 cm ESV(MOD-sp2) 7.4 ml ESV(sp2-el) 6.7 ml EF(MOD-sp2) 71.4 % EF(sp2-el) 73.5 % LVLd %diff 1.1 % EDV(MOD-bp) 28.8 ml LVLs %diff 5.8 % ESV(MOD-bp) 9.0 ml EF(MOD-bp) 68.7 % SV(MOD-sp4) 21.8 ml SI(MOD-sp4) 11.9 ml/m\S\2 SV(MOD-sp2) 18.6 ml SI(MOD-sp2) 10.1 ml/m\S\2 SV(MOD-bp) 19.8 ml SI(MOD-bp) 10.8 ml/m\S\2 SV(sp4-el) 23.5 ml SI(sp4-el) 12.8 ml/m\S\2 SV(sp2-el) 18.7 ml SI(sp2-el) 10.2 ml/m\S\2 Doppler Measurements and Calculations MV E max shira 80.3 cm/sec MV A max shira 147.8 cm/sec MV E/A 0.54 MV dec time 0.37 sec Ao V2 max 129.5 cm/sec Ao max PG 6.7 mmHg Ao max PG (full) 1.2 mmHg ARNOLD(V,A) 2.7 cm\S\2 ARNOLD(V,D) 2.7 cm\S\2 LV V1 max PG 5.5 mmHg LV V1 max 117.0 cm/sec PA V2 max 108.7 cm/sec PA max PG 4.7 mmHg PA acc slope 526.3 cm/sec\S\2 PA acc time 0.13 sec TR max shira 124.2 cm/sec PA pr(Accel) 22.8 mmHg
--- NOTE | 2017-03-03 16:22 | DIAGNOSTIC IMAGING REPORT ---
SACRUM COCCYX MIN 2 VIEWS CLINICAL HISTORY: coccyx pain, recent fall COMPARISON STUDY: None. FINDINGS: No fractures identified within the sacrum or coccyx. The alignment appears intact. Presacral soft tissues are maintained. Mild degenerative changes within the bilateral sacroiliac joints. Vascular calcifications are noted. IMPRESSION: No fractures identified within the sacrum or coccyx. Electronically signed by: Garfield Claire M.D. 03/03/2017 4:21 PM Dictated Date/Time: 03/03/2017 4:19 PM
[2017-03-04] VITALS (8 sets, daily range): BP systolic 102–104; BP diastolic 61; PULSE 86–94; TEMP 36.6–36.7; O2SAT 93–98
[2017-03-04] MEDS: ALBUT/IPRATROP 3MG/0.5MG NEB 3 ML VIAL INH SCH ×5 (03:32→23:04)
[2017-03-04] MEDS: SODIUM CHLORIDE 0.9% 1000ML 1,000 ML IV SCH (03:40)
[2017-03-04 06:39] LABS: BASO % 0.1 %; BASO ABS # 0.01 K/uL (0-0.2); COMPLETE YES; EOS % 0.6 %; HEMATOCRIT 30.1 % (37-47); IG% 0.6 %; LYMPH % 12.7 %; LYMPH ABS # 1.24 K/uL (1.2-3.4); MEAN CELL VOLUME 89.3 fL (80-100); MEAN CORPUSCULAR HEMOGLOBIN 27.6 pg (25-34); MEAN CORPUSCULAR HGB CONC 30.9 g/dl (32-36); MEAN PLATELET VOLUME 8.5 fL (7.4-10.4); MONO % 8.5 %; NEUT % 77.5 %; PLATELET COUNT 398 K/uL (130-400); RED BLOOD COUNT 3.37 M/uL (4.2-5.4); WHITE BLOOD COUNT 9.78 K/uL (4.8-10.8)
[2017-03-04 07:16] LABS: CALCIUM 9.3 mg/dl (8.5-10.1); CREATININE 0.91 mg/dl (0.60-1.20); POTASSIUM 4.7 mmol/L (3.5-5.1)
[2017-03-04] MEDS: GABAPENTIN 300 MG CAP PO SCH ×3 (08:16→20:13)
[2017-03-04] MEDS: CALCIUM 600MG + VIT D 400 IU TAB PO SCH (08:16)
[2017-03-04] MEDS: CYANOCOBALAMIN 500 MCG TAB (VIT B-12) PO SCH (08:16)
[2017-03-04] MEDS: ASPIRIN 81 MG ECTAB PO SCH (08:16)
[2017-03-04] MEDS: MULTIVITAMIN TAB PO SCH (08:16)
[2017-03-04] MEDS: TIOTROPIUM BROMIDE 5 PUFF/90 MCG INH INH SCH (08:16)
[2017-03-04] MEDS: CHOLECALCIFEROL 1000 INTER.UNIT TAB PO SCH (08:16)
[2017-03-04] MEDS: CETIRIZINE HCL 10 MG TAB PO SCH (08:16)
[2017-03-04] MEDS: CEROVITE ADV FORMULA TAB PO SCH (08:16)
[2017-03-04] MEDS: FLUTICASONE/SALMETEROL 250/50 (ADVAIR) 14 PUFF/1 INHALER INH SCH ×2 (08:16→20:13)
[2017-03-04] MEDS: THIAMINE HCL 50 MG TAB PO SCH (08:17)
[2017-03-04] MEDS: OMEGA-3 (PURIFIED FISH OIL) 1 GM CAP PO SCH (08:17)
[2017-03-04] MEDS: TOCOPHERYL, DL-ALPHA 100 INTERUNIT CAP PO SCH (08:17)
[2017-03-04] MEDS: INSULIN ASPART 100 UNITS/ML 3 ML PEN SC SCH ×4 (09:01→20:18)
[2017-03-04] MEDS: HEPARIN SOD 5000 UNIT/0.5 ML CARP SQ SCH ×2 (09:02→20:19)
[2017-03-04 14:17] LABS: LEGIONELLA ANTIGEN NOT DETECTED (NOT DETECTED)
--- NOTE | 2017-03-04 16:58 | Family Medicine Progress Note ---
Progress Note Date of Service Mar 04, 2017. Subjective Pt evaluation today including: conversation w/ patient, physical exam, chart review, lab review Pain: Report back pain PO Intake: tolerating Voiding: santamaria catheter in place This AM pt reports chronic productive cough attributed to her COPD and back pain from her fall. She denies any sob or cp. Constitutional: No fever Respiratory: + cough, + sputum, No shortness of breath Cardiovascular: No chest pain Abdomen: No pain Musculoskeletal: + problem reported (back pain) Medications Current Inpatient Medications Medications (Trade) Dose Ordered Sig/Sarkis Route Start Time Stop Time Status Last Admin Dose Admin Acetaminophen (Tylenol Tab) 650 mg Q4H PRN PO 03/02/17 20:00 04/01/17 19:59 Magnesium Hydroxide (Milk Of Magnesia Susp) 30 ml Q6H PRN PO 03/02/17 20:00 04/01/17 19:59 Polyethylene (Miralax Powder Packet) 17 gm DAILY PRN PO 03/02/17 20:00 04/01/17 19:59 Ondansetron HCl (Zofran Inj) 4 mg Q6H PRN IV 03/02/17 20:00 04/01/17 19:59 Levofloxacin 750 mg/Prmx 150 ml @ 100 mls/hr Q2D@1800 IV 03/04/17 18:00 03/09/17 17:59 Albuterol (Ventolin Hfa Inhaler) 2 puffs Q4H PRN INH 03/02/17 20:00 04/01/17 19:59 Aspirin (Ecotrin Tab) 81 mg DAILY PO 03/03/17 08:00 04/02/17 08:59 03/04/17 08:16 81 MG Cetirizine HCl (zyrTEC TAB) 10 mg DAILY PO 03/03/17 08:00 04/02/17 08:59 03/04/17 08:16 10 MG Fish Oil ([place]-3 (Purified Fish Oil) Cap) 1 gm DAILY PO 03/03/17 08:00 04/02/17 08:59 03/04/17 08:17 1 GM Salmeterol Xinafoate/ Fluticasone (Advair Diskus 250/50 Inh) 1 puff BID INH 03/02/17 21:00 04/01/17 20:59 03/04/17 08:16 1 PUFF Gabapentin (Neurontin Cap) 300 mg DAILY@1200 PO 03/03/17 12:00 04/02/17 11:59 03/04/17 12:18 300 MG Gabapentin (Neurontin Cap) 300 mg QAM PO 03/03/17 08:00 04/02/17 08:59 03/04/17 08:16 300 MG Gabapentin (Neurontin Cap) 600 mg HS PO 03/02/17 21:00 04/01/17 20:59 03/02/17 22:38 600 MG Multivitamins (Multivitamin Tab) 1 tab DAILY PO 03/03/17 08:00 04/02/17 08:59 03/04/17 08:16 1 TAB Multivitamins/ Minerals (Multivitamin W/ Minerals Tab) 2 tab DAILY PO 03/03/17 08:00 04/02/17 08:59 03/04/17 08:16 2 TAB Tiotropium [place] (Spiriva Handihaler Inhaler) 1 puff DAILY INH 03/03/17 08:00 04/02/17 08:59 03/04/17 08:16 1 PUFF [id number]-Bfzuabnbkn Acetate (Vitamin E Cap) 100 interunit DAILY PO 03/03/17 08:00 04/02/17 08:59 03/04/17 08:17 100 INTERUNIT Calcium/Vitamin D (Caltrate Plus Tab) 1 tab DAILY PO 03/03/17 08:00 04/02/17 08:59 03/04/17 08:16 1 TAB Cholecalciferol (Vitamin D Tab) 2,000 inter.unit DAILY PO 03/03/17 08:00 04/02/17 08:59 03/04/17 08:16 2,000 INTER.UNIT Cyanocobalamin (Vitamin B-12 Tab) 1,000 mcg DAILY PO 03/03/17 08:00 04/02/17 08:59 03/04/17 08:16 1,000 MCG Miscellaneous Information (Order Awaiting Action) 1 ea QS N/A 03/02/17 20:00 04/01/17 19:59 Thiamine HCl (Vitamin B-1 Tab) 250 mg DAILY PO 03/03/17 08:00 04/02/17 08:59 03/04/17 08:17 250 MG Insulin Aspart (novoLOG ASPART) SLIDING SCALE G... ACHS SC 03/02/17 21:00 04/01/17 20:59 03/04/17 12:37 3 UNITS Albuterol/ Ipratropium (Duoneb) 3 ml Q4R INH 03/03/17 22:00 04/02/17 21:59 03/04/17 11:19 3 ML Levofloxacin (Consult) 1 ea UD PRN N/A 03/02/17 22:30 04/01/17 22:29 Heparin Sodium (Porcine) (Heparin Sq 5000 Unit/0.5ml) 5,000 unit Q12 SQ 03/03/17 09:00 04/02/17 08:59 03/04/17 09:02 5,000 UNIT Glucose (Glucose 40% Gel) 15-30 GRAMS 15 GRAMS... UD PRN PO 03/02/17 23:45 04/01/17 23:44 Glucose (Glucose Chew Tab) 4-8 Tablets 4 Tabl... UD PRN PO 03/02/17 23:45 04/01/17 23:44 Dextrose (Dextrose 50% 50ML Syringe) 25-50ML OF 50% DW IV FOR... UD PRN IV 03/02/17 23:45 04/01/17 23:44 Glucagon (Glucagon Inj) 1 mg UD PRN SQ 03/02/17 23:45 04/01/17 23:44 Objective Vital Signs Date Time Temp Pulse Resp B/P (MAP) Pulse Ox O2 Delivery O2 Flow Rate FiO2 03/04/17 16:00 Nasal Cannula 2.0 03/04/17 15:50 36.6 94 20 104/61 (75) 98 Nasal Cannula 2.0 03/04/17 11:21 87 14 96 Nasal Cannula 2.0 03/04/17 08:00 Nasal Cannula 2.0 03/04/17 07:32 36.7 89 16 102/61 (75) 96 Nasal Cannula 03/04/17 07:09 86 14 96 Nasal Cannula 2.0 03/04/17 03:34 86 14 96 Nasal Cannula 2.0 03/04/17 00:01 96 Nasal Cannula 3.0 03/03/17 23:57 37.7 87 20 116/68 (84) 96 Nasal Cannula 2.0 03/03/17 23:05 84 14 96 Nasal Cannula 3.0 03/03/17 19:52 Nasal Cannula 3.0 03/03/17 18:43 88 18 94 Nasal Cannula 3.0 Physical Exam General Appearance: no apparent distress Eyes: normal inspection Neck: supple Respiratory/Chest: lungs clear, + decreased breath sounds Cardiovascular: regular rate, rhythm, no edema Abdomen: normal bowel sounds, non tender, soft Extremities: no pedal edema Neurologic/Psychiatric: alert, + pertinent finding (hard of hearing) Laboratory Results 03/04/17 06:09 Red Blood Count 3.37, Mean Corpuscular Volume 89.3, Mean Corpuscular Hemoglobin 27.6, Mean Corpuscular Hemoglobin Concent 30.9, Mean Platelet Volume 8.5, Neutrophils (%) (Auto) 77.5, Lymphocytes (%) (Auto) 12.7, Monocytes (%) (Auto) 8.5, Eosinophils (%) (Auto) 0.6, Basophils (%) (Auto) 0.1, Neutrophils # (Auto) 7.58, Lymphocytes # (Auto) 1.24, Monocytes # (Auto) 0.83, Eosinophils # (Auto) 0.06, Basophils # (Auto) 0.01 03/04/17 06:09 Test 03/04/17 06:09 03/04/17 16:30 White Blood Count 9.78 K/uL (4.8-10.8) Red Blood Count 3.37 M/uL (4.2-5.4) Hemoglobin 9.3 g/dL (12.0-16.0) Hematocrit 30.1 % (37-47) Mean Corpuscular Volume 89.3 fL (80-100) Mean Corpuscular Hemoglobin 27.6 pg (25-34) Mean Corpuscular Hemoglobin Concent 30.9 g/dl (32-36) Platelet Count 398 K/uL (130-400) Mean Platelet Volume 8.5 fL (7.4-10.4) Neutrophils (%) (Auto) 77.5 % Lymphocytes (%) (Auto) 12.7 % Monocytes (%) (Auto) 8.5 % Eosinophils (%) (Auto) 0.6 % Basophils (%) (Auto) 0.1 % Neutrophils # (Auto) 7.58 K/uL (1.4-6.5) Lymphocytes # (Auto) 1.24 K/uL (1.2-3.4) Monocytes # (Auto) 0.83 K/uL (0.11-0.59) Eosinophils # (Auto) 0.06 K/uL (0-0.5) Basophils # (Auto) 0.01 K/uL (0-0.2) RDW Standard Deviation 49.0 fL (36.4-46.3) RDW Coefficient of Variation 15.0 % (11.5-14.5) Immature Granulocyte % (Auto) 0.6 % Immature Granulocyte # (Auto) 0.06 K/uL (0.00-0.02) Anion Gap 3.0 mmol/L (3-11) Est Creatinine Clear Calc Drug Dose 42.4 ml/min Estimated GFR () 65.7 Estimated GFR (Non- 56.7 BUN/Creatinine Ratio 20.0 (10-20) Calcium Level 9.3 mg/dl (8.5-10.1) Bedside Glucose 232 mg/dl (70-90) Assessment and Plan Ms. Francois is an 86 yoF with hx of COPD, lung cancer, DM and neuropathy who presented with productive cough and generalized weakness which was concerning for developing pneumonia and back pain from a fall during transport to ED. Was hemodynamically stable, admitted to med surg and started on Levofloxacin. UA was negative. BRENNAN and elevated K were also noted which given her poor appetite could have contributed to her generalized weakness. Patient was well hydrated with NSS 125 cc/h. Weakness and fall with BRENNAN secondary to dehydration from poor oral intake - Cardiac work up was reassuring - troponin 0.017 - CKMB 1.3 - ECHO: EF > 70%, LV hyperdynamic, mild concentric LVH, Grade I diastolic dysfunction, mild tricuspid regurg - IVF. - Encourage oral intake. Deconditioned status - Significant decline in functional mobility and ADLs since January admission - Required assistance from 2 caregivers for transfer at home and has private care givers prior to current admission - PT/OT eval Concern of Pneumonia - CXR finding likely from atelectasis. - CXR negative. - Sputum culture ordered but pt could not provide sputum sample - blood cultures negative to date 03/05 - procalcitonin 0.30 - Will Dc antibiotics. - Incentive spirometer Back pain s/p fall - Coccyx Xray ruled out fracture - Tylenol PRN for pain Chronic hypoxic respiratory failure secondary to COPD and lung cancer - on O2 per protocol - O2 dependent at home as well - Continue Advair, Spiriva - Albuterol prn Hyperkalemia - likely sec to BRENNAN and poor oral intake. - Continue to hold Losartan DMIII - Lantus 20 units pm - insulin ISS with BSG AC HS Diabetic Neuropathy - Continued gabapentin; 300 mg in am and afternoon, 600 mg hs DVT Prophylaxis - SCD and heparin bid D/C: pending placement determination Continued [facility] stay due to: other (PT/OT eval and placement determination) Resident Involvement: Resident Care Provided Care Provided: Adult Hospital Medicine Reviewed: Pt Seen/Exam by Me History hard of hearing. comfortable in bed. step son at bedside. reports that she ate much better today denies any concern Constitutional: denies: fever Respiratory: negative: short of breath Cardiovascular: denies chest pain General Appearance: no apparent distress Respiratory: lungs clear, no respiratory distress Cardiovascular: regular rate, rhythm Neurologic/Psychiatric: alert, other (oriented to place and person) Skin Characteristics: warm/dry Assessment/Plan Resident Physician Supervision Note: I independently interviewed and examined the patient and verified the cameron history and physical, reviewed labs and image studies, discussed the case with the resident Dr. Lara and agree with the findings and care plan.
[2017-03-04] MEDS ORDERED: LEVOFLOXACIN / D5W 750 MG in PREMIXED IN D5W 150 ML IV SCH (18:00)
[2017-03-05] VITALS (7 sets, daily range): BP systolic 102–136; BP diastolic 59–66; PULSE 87–110; TEMP 37–37.1; O2SAT 93–100
[2017-03-05] MEDS: ALBUT/IPRATROP 3MG/0.5MG NEB 3 ML VIAL INH SCH ×4 (03:34→15:35)
[2017-03-05 07:12] LABS: BASO % 0.2 %; BASO ABS # 0.02 K/uL (0-0.2); COMPLETE YES; EOS % 0.5 %; HEMATOCRIT 32.2 % (37-47); IG% 0.6 %; LYMPH % 10.1 %; LYMPH ABS # 1.04 K/uL (1.2-3.4); MEAN CELL VOLUME 88.7 fL (80-100); MEAN CORPUSCULAR HEMOGLOBIN 27.3 pg (25-34); MEAN CORPUSCULAR HGB CONC 30.7 g/dl (32-36); MEAN PLATELET VOLUME 8.3 fL (7.4-10.4); MONO % 7.7 %; NEUT % 80.9 %; PLATELET COUNT 376 K/uL (130-400); RED BLOOD COUNT 3.63 M/uL (4.2-5.4); WHITE BLOOD COUNT 10.25 K/uL (4.8-10.8)
[2017-03-05] MEDS: TIOTROPIUM BROMIDE 5 PUFF/90 MCG INH INH SCH (07:41)
[2017-03-05] MEDS: FLUTICASONE/SALMETEROL 250/50 (ADVAIR) 14 PUFF/1 INHALER INH SCH (07:41)
[2017-03-05] MEDS: TOCOPHERYL, DL-ALPHA 100 INTERUNIT CAP PO SCH (07:42)
[2017-03-05] MEDS: CYANOCOBALAMIN 500 MCG TAB (VIT B-12) PO SCH (07:42)
[2017-03-05] MEDS: THIAMINE HCL 50 MG TAB PO SCH (07:42)
[2017-03-05] MEDS: GABAPENTIN 300 MG CAP PO SCH ×2 (07:42→12:23)
[2017-03-05] MEDS: CALCIUM 600MG + VIT D 400 IU TAB PO SCH (07:42)
[2017-03-05] MEDS: CETIRIZINE HCL 10 MG TAB PO SCH (07:42)
[2017-03-05] MEDS: MULTIVITAMIN TAB PO SCH (07:42)
[2017-03-05] MEDS: OMEGA-3 (PURIFIED FISH OIL) 1 GM CAP PO SCH (07:42)
[2017-03-05] MEDS: CHOLECALCIFEROL 1000 INTER.UNIT TAB PO SCH (07:42)
[2017-03-05] MEDS: CEROVITE ADV FORMULA TAB PO SCH (07:42)
[2017-03-05] MEDS: ASPIRIN 81 MG ECTAB PO SCH (07:42)
[2017-03-05 08:26] LABS: BUN/CREATININE RATIO 12.2 (10-20); CALCIUM 9.6 mg/dl (8.5-10.1); CREATININE 0.89 mg/dl (0.60-1.20); POTASSIUM 4.8 mmol/L (3.5-5.1)
[2017-03-05] MEDS: INSULIN ASPART 100 UNITS/ML 3 ML PEN SC SCH ×2 (08:57→12:30)
[2017-03-05] MEDS: HEPARIN SOD 5000 UNIT/0.5 ML CARP SQ SCH (08:57)
--- NOTE | 2017-03-05 10:12 | Discharge Instructions ---
Discharge Instructions Date of Service Mar 05, 2017. Admission Reason for Admission: Generalized Weakness, Pneumonia Discharge Discharge Diagnosis / Problem: generalized weakness, pneumonia Discharge Goals Goal(s): Decrease discomfort, Diagnostic testing, Therapeutic intervention Activity Recommendations Activity Level: Up Ad Keely, Assistance Required Therapies: Physical Therapy, Occupational Therapy . Additional Information Patient informed of condition: Yes Advance Directives: Yes DNR: No Level of Care: Skilled Communicable Disease: No Prognosis: Stable Oxygen at (LPM): Requires oxygen at home; on 2L NC here Edwards Catheter: No Instructions / Follow-Up Instructions / Follow-Up Ms. Francois is an 86 yoF with hx of COPD, lung cancer, DM and neuropathy who presented with productive cough and generalized weakness which was concerning for developing pneumonia and back pain from a fall during transport to ED. Was hemodynamically stable, admitted to [facility] and started on Levofloxacin. UA was negative, UCx from catheter sample grew gram positive cocci (5000 colonies only). BRENNAN and elevated K were also noted which given her poor appetite could have contributed to her generalized weakness and resolved post hydration with NSS 125 cc/h. Weakness and fall with BRENNAN secondary to dehydration from poor oral intake - Cardiac work up was reassuring - troponin 0.017 - CKMB 1.3 - ECHO: EF > 70%, LV hyperdynamic, mild concentric LVH, Grade I diastolic dysfunction, mild tricuspid regurg - Received IVF. - Oral intake still not appropriate. Eats well when family is around. To consider help with meals. Deconditioned status - Significant decline in functional mobility and ADLs since January admission - Required assistance from 2 caregivers for transfer at home and has private 24/ 7 care givers prior to current admission - Was able to get out of bed with support prior to d/c - OT - recommended rehab placement - Being discharge to [facility] for PT/OT Concern of Pneumonia - CXR finding likely from atelectasis. - CXR negative. - Sputum culture ordered but pt could not provide sputum sample - blood cultures negative to date 03/05 - procalcitonin 0.30 - Dced antibiotics. Back pain s/p fall - Coccyx Xray ruled out fracture - Tylenol PRN for pain Chronic hypoxic respiratory failure secondary to COPD and lung cancer - stayed stable - on O2 per protocol - O2 dependent at home as well - Continue Advair, Spiriva - Albuterol prn Hyperkalemia - resolved K 4.7 this AM - likely sec to BRENNAN and poor oral intake. - Held Losartan 100 mg while here. d/milton on discharge since BP running low. DMIII - Lantus 20 units pm - insulin ISS with BSG AC HS Diabetic Neuropathy - Continued gabapentin; 300 mg in am and afternoon, 600 mg hs Current Hospital Diet Patient's current hospital diet: Regular Diet, Diabetes Type 2 Diet Discharge Diet Recommended Diet: Diabetes Type 2 Diet Procedures Procedures Performed: Coccyx Xray 03/03 SACRUM COCCYX MIN 2 VIEWS CLINICAL HISTORY: coccyx pain, recent fall COMPARISON STUDY: None. FINDINGS: No fractures identified within the sacrum or coccyx. The alignment appears intact. Presacral soft tissues are maintained. Mild degenerative changes within the bilateral sacroiliac joints. Vascular calcifications are noted. IMPRESSION: No fractures identified within the sacrum or coccyx. HEAD CT - 03/02/17 HEAD WITHOUT CONTRAST (CT) CLINICAL HISTORY: 86 years-old Female with weakness, fall. Acute weakness and fall. Initial exam TECHNIQUE: Multiple axial CT images of the head were obtained without contrast. A dose lowering technique was utilized adhering to the principles of ALARA. CT DOSE: 601.98 mGy.cm COMPARISON: None. FINDINGS: No acute intracranial hemorrhage, midline shift, mass, large territorial ischemia or abnormal extra-axial collection. Moderate atrophy. Background chronic microvascular ischemic changes. The calvarium is intact. The paranasal sinuses, mastoid air cells, and middle ear cavities are clear. IMPRESSION: 1. No acute intracranial abnormality. No hemorrhage or calvarial fracture. 2. Age related findings of atrophy with chronic microvascular ischemic changes. CXR 03/02 HISTORY: 86 years-old Female EVALUATE WEAKNESS acute weakness. COMPARISON: Chest radiograph 01/27/2017 TECHNIQUE: Portable upright AP view of the chest FINDINGS: Cardiac silhouette is within normal limits. There is enlargement of the pulmonary vasculature suggesting pulmonary vascular congestion and/or pulmonary arterial hypertension. No overt pulmonary edema. There is atherosclerosis of the aorta. Emphysematous changes are again noted with areas of interstitial coarsening suggesting chronic scarring. Persistent left basilar opacity is noted which has slightly improved. Blunting of left costophrenic angle suggests small effusion. No pneumothorax. The bones are grossly intact. IMPRESSION: 1. Persistent left basilar opacity suggesting atelectasis or scarring with probable small left effusion . 2. Emphysema. 3. Suggested pulmonary arterial hypertension. ECHO - 03/03 -- Conclusions -- The left ventricle is hyperdynamic. No regional wall motion abnormalities noted. Ejection Fraction = >70 %. There is mild concentric left ventricular hypertrophy. Grade I diastolic dysfunction, (abnormal relaxation pattern). There is mild tricuspid regurgitation Pending Studies Studies pending at discharge: no Laboratory Results Hemoglobin A1c Test 01/27/17 05:28 Range/Units Estimated Average Glucose 166 mg/dl Hemoglobin A1c 7.4 H 4.5-5.6 % Medical Emergencies . Who to Call and When: Medical Emergencies: If at any time you feel your situation is an emergency, please call 911 immediately. . Non-Emergent Contact Non-Emergency issues call your: Primary Care Provider Call Non-Emergent contact if: you have a fever . . "Provider Documentation" section prepared by Pankaj Lara. . Core Measure Problem Core Measures: None (HEPARIN AND SCD)
--- NOTE | 2017-03-05 11:00 | Discharge Summary ---
Discharge Summary Date of Service Mar 05, 2017. (Pankaj Lara M.D.) Discharge Summary Admission Date: Mar 02, 2017 at 19:57 Discharge Date: Mar 05, 2017 Discharge Disposition: Rehab Principal Diagnosis: weakness/deconditioned status Problems/Secondary Diagnoses: fall/back pain COPD hyperkalemia BRENNAN DM 2 Diabetic neuropathy Immunizations: Have You Had Influenza Vaccine: Unknown History of Tetanus Vaccine?: Unknown History of Pneumococcal: Unknown History of Hepatitis B Vaccine: Unknown Procedures: Coccyx Xray 03/03 SACRUM COCCYX MIN 2 VIEWS CLINICAL HISTORY: coccyx pain, recent fall COMPARISON STUDY: None. FINDINGS: No fractures identified within the sacrum or coccyx. The alignment appears intact. Presacral soft tissues are maintained. Mild degenerative changes within the bilateral sacroiliac joints. Vascular calcifications are noted. IMPRESSION: No fractures identified within the sacrum or coccyx. HEAD CT - 03/02/17 HEAD WITHOUT CONTRAST (CT) CLINICAL HISTORY: 86 years-old Female with weakness, fall. Acute weakness and fall. Initial exam TECHNIQUE: Multiple axial CT images of the head were obtained without contrast. A dose lowering technique was utilized adhering to the principles of ALARA. CT DOSE: 601.98 mGy.cm COMPARISON: None. FINDINGS: No acute intracranial hemorrhage, midline shift, mass, large territorial ischemia or abnormal extra-axial collection. Moderate atrophy. Background chronic microvascular ischemic changes. The calvarium is intact. The paranasal sinuses, mastoid air cells, and middle ear cavities are clear. IMPRESSION: 1. No acute intracranial abnormality. No hemorrhage or calvarial fracture. 2. Age related findings of atrophy with chronic microvascular ischemic changes. CXR 03/02 HISTORY: 86 years-old Female EVALUATE WEAKNESS acute weakness. COMPARISON: Chest radiograph 01/27/2017 TECHNIQUE: Portable upright AP view of the chest FINDINGS: Cardiac silhouette is within normal limits. There is enlargement of the pulmonary vasculature suggesting pulmonary vascular congestion and/or pulmonary arterial hypertension. No overt pulmonary edema. There is atherosclerosis of the aorta. Emphysematous changes are again noted with areas of interstitial coarsening suggesting chronic scarring. Persistent left basilar opacity is noted which has slightly improved. Blunting of left costophrenic angle suggests small effusion. No pneumothorax. The bones are grossly intact. IMPRESSION: 1. Persistent left basilar opacity suggesting atelectasis or scarring with probable small left effusion . 2. Emphysema. 3. Suggested pulmonary arterial hypertension. ECHO - 03/03 -- Conclusions -- The left ventricle is hyperdynamic. No regional wall motion abnormalities noted. Ejection Fraction = >70 %. There is mild concentric left ventricular hypertrophy. Grade I diastolic dysfunction, (abnormal relaxation pattern). There is mild tricuspid regurgitation (Pankaj Lara M.D.) Medication Reconciliation Continued Medications: Albuterol Hfa (Ventolin Hfa) 200 Puffs/37537 Mcg Aers 2 PUFFS INH Q4H PRN for SOB/Wheezing, INHALER Alendronate Sodium (Fosamax) 70 Mg Tab 70 MG PO WK, TAB TAKE THIS MEDICATION ONCE WEEKLY ON WEDNESDAY ON AN EMPTY STOMACH WITH 6 TO 8 OUNCES OF WATER. TAKE NO FOOD OR ANY OTHER MEDICATIONS FOR 30 MINUTES AFTER TAKING, REMAIN UPRIGHT DURING THIS TIME. Aspirin (Aspirin 81) 81 Mg Tab 81 MG PO DAILY Calcium Carbonate-Vitamin D (Calcium 600 + D) 1 Tab Tab 1 TAB PO DAILY Cetirizine (Zyrtec) 10 Mg Tab 10 MG PO DAILY, TAB Cholecalciferol (Vitamin D3) 2,000 Unit Tab 2000 INTER.UNIT PO DAILY, TAB Cyanocobalamin (Vitamin B12) 1,000 Mcg Tab 1000 MCG PO DAILY Dextromethorphan-Guaifenesin (Mucinex Dm) 1 Tab Tab 1 TAB PO Q12 PRN for Congestion, TAB Fish Oil ([place]-3) 1 Ea Cap 1 CAP PO DAILY, CAP Fluticasone Prop/Salmeterol (Advair Diskus 250-50 Mcg/Dose) 14 Puff/1 Inhaler Aerp 1 PUFF INH BID Gabapentin (Neurontin) 300 Mg Cap 300 MG PO QAM, CAP Gabapentin (Neurontin) 300 Mg Cap 300 MG PO Afternoon, CAP Gabapentin (Neurontin) 300 Mg Cap 600 MG PO HS, CAP Insulin Aspart (Novolog Flexpen) 100 Units/Ml Inj 20 UNITS SC QAM Insulin Aspart (Novolog Flexpen) 100 Units/Ml Inj 30 UNITS SC WITH SUPPER WITH SUPPER Insulin Glargine (Lantus Solostar) 100 Unit/Ml Inj 20 UNITS SC UD, PEN DIRECTED BY Multiple Vitamin (Multivitamin) 1 Tab Tab 1 TAB PO DAILY, TAB Multiple Vitamins W/ Minerals (Macular Vitamin Benefit) 1 Tab Tab 2 TABS PO DAILY Thiamine Hcl (Vitamin B-1) 250 Mg Tab 250 MG PO DAILY Tiotropium [place] (Spiriva Handihaler) 30 Puff/540 Mcg Aerp 1 CAP INH DAILY, INHALER Vitamin E (Vitamin E 100 Iu) 100 Unit Cap 100 INTER.UNIT PO DAILY, CAP Discontinued Medications: Losartan Potassium (Cozaar) 100 Mg Tab 100 MG PO DAILY, TAB Discharge Exam Review of Systems: Constitutional: + weakness, No fever Respiratory: + cough, + sputum Cardiovascular: No chest pain Abdomen: No pain, No nausea, No vomiting Musculoskeletal: + problem reported (back pain s/p fall) Physical Exam: General Appearance: no apparent distress Eyes: normal inspection Neck: supple Respiratory/Chest: normal breath sounds, + crackles (fine crackles R basilar region) Cardiovascular: regular rate, rhythm, no edema, no murmur Abdomen / GI: normal bowel sounds, non tender, soft Extremities: normal inspection, no pedal edema Neurologic/Psychiatric: alert, oriented x 3, + pertinent finding (very hard of hearing) Skin: warm/dry (Pankaj Lara M.D.) denied any complains no chest pain, shortness of breath, cough. didn't feel like eating this am Review of Systems: Constitutional: No fever Respiratory: No shortness of breath Cardiovascular: No chest pain Physical Exam: General Appearance: no apparent distress Respiratory/Chest: lungs clear, no respiratory distress Cardiovascular: regular rate, rhythm Abdomen / GI: normal bowel sounds, non tender, soft Neurologic/Psychiatric: alert, + pertinent finding (oriented to place and person) (Jessica Lynch M.D.) Hospital Course Ms. Francois is an 86 yoF with hx of COPD, lung cancer, DM and neuropathy who presented with productive cough and generalized weakness which was concerning for developing pneumonia and back pain from a fall during transport to ED. Was hemodynamically stable, admitted to med surg and started on Levofloxacin. UA was negative, UCx from catheter sample grew gram positive cocci (5000 colonies only). BRENNAN and elevated K were also noted which given her poor appetite could have contributed to her generalized weakness and resolved post hydration with NSS 125 cc/h. Weakness and fall with BRENNAN secondary to dehydration from poor oral intake - Cardiac work up was reassuring - troponin 0.017 - CKMB 1.3 - ECHO: EF > 70%, LV hyperdynamic, mild concentric LVH, Grade I diastolic dysfunction, mild tricuspid regurg - Received IVF. - Oral intake still not appropriate. Eats well when family is around. To consider help with meals. Deconditioned status - Significant decline in functional mobility and ADLs since January admission - Required assistance from 2 caregivers for transfer at home and has private 24/ 7 care givers prior to current admission - Was able to get out of bed with support prior to d/c - OT - recommended rehab placement - Being discharge to [facility] for PT/OT Concern of Pneumonia - CXR finding likely from atelectasis. - CXR negative. - Sputum culture ordered but pt could not provide sputum sample - blood cultures negative to date 03/05 - procalcitonin 0.30 - Dced antibiotics. Back pain s/p fall - Coccyx Xray ruled out fracture - Tylenol PRN for pain Chronic hypoxic respiratory failure secondary to COPD and lung cancer - stayed stable - on O2 per protocol - O2 dependent at home as well - Continue Advair, Spiriva - Albuterol prn Hyperkalemia - resolved K 4.7 this AM - likely sec to BRENNAN and poor oral intake. - Held Losartan 100 mg while here. d/milton on discharge since BP running low. DMIII - Lantus 20 units pm - insulin ISS with BSG AC HS Diabetic Neuropathy - Continued gabapentin; 300 mg in am and afternoon, 600 mg hs Total Time Spent: Less than 30 minutes This includes examination of the patient, discharge planning, medication reconciliation, and communication with other providers. (Pankaj Lara M.D.) Resident Physician Supervision Note: I independently interviewed and examined the patient and verified the cameron history and physical, reviewed labs and image studies, discussed the case with the resident Dr. Lara and agree with the findings and care plan. Total Time Spent: Greater than 30 minutes (40) (Jessica Lynch M.D.) Discharge Instructions Please refer to the electronic Patient Visit Report (Discharge Instructions) for additional information. (Pankaj Lara M.D.) Additional Copies To RV. Balbuena MD
== END 2017-03-05 15:55 | DRG 683 ==
LOC: EDBD 16:02 → C.EDB 16:04 → C.MS4W 19:57 → ENRESERV 20:13
PROVIDERS: ADMIT Hospitalist; ATTEND Family Medicine
DX: N17.9 Acute kidney failure, unspecified (principal); J98.11 Atelectasis; J96.11 Chronic respiratory failure with hypoxia; R53.1 Weakness; E87.5 Hyperkalemia; M53.3 Sacrococcygeal disorders, not elsewhere classified; E86.0 Dehydration; Z91.81 History of falling; J44.9 Chronic obstructive pulmonary disease, unspecified; E11.42 Type 2 diabetes mellitus with diabetic polyneuropathy; Z51.81 Encounter for therapeutic drug level monitoring; Z79.899 Other long term (current) drug therapy; Z79.4 Long term (current) use of insulin; Z79.82 Long term (current) use of aspirin; Z99.81 Dependence on supplemental oxygen; Z85.118 Personal history of other malignant neoplasm of bronchus and lung; Z87.891 Personal history of nicotine dependence